=== PATIENT | female | born 1940 | race African-American/Black ===

== ENCOUNTER 2016-08-30 17:03 | Emergency (ER) | payer OTHER ==
[2016-08-30 17:36] VITALS: BP 137/76; PULSE 66; TEMP 98.6; BMI 27.8
[2016-08-30] MEDS ORDERED: DIPHTH,PERTUSS(ACELL),TET 0.5 ML DISP.SYRIN IM ONE (18:58)
[2016-08-30] MEDS ORDERED: BACITRACIN 30 GM TUBE TOPICAL OINTMENT TP ONE (18:58)
--- NOTE | 2016-08-30 19:04 | PDOC ---
History of Present Illness - General Chief Complaint: Injury Stated Complaint: FALL/INJURY Time Seen by Provider: 08/30/16 18:48 History Source: Patient Exam Limitations: No Limitations - History of Present Illness Initial Comments: 08/30/16 18:58 76 yr female trip and fall last night in parking lot injured left face. No LOC, pt injured right knee. no dizzyness or headache, pt has pain to the left orbit. no vision changes, tetanus unknown. Occurred: reports: yesterday Severity: reports: mild Pain Location: reports: face Method of Injury: Yes: fall Loss of Consciousness: no loss of consciousness Associated Symptoms (Fall): denies symptoms Past History - Past Medical History Allergies/Adverse Reactions: Allergies Allergy/AdvReac Type Severity Reaction Status Date / Time aspirin Allergy Verified 08/30/16 17:34 NSAIDS (Non-Steroidal Allergy Verified 08/30/16 17:34 Anti-Inflamma Penicillins Allergy Verified 08/30/16 17:34 Cancer: (CLL NO TREATMENT) HTN: Yes Hypercholesterolemia: Yes Thyroid Disease: Yes - Psycho/Social/Smoking Cessation Hx Suicidal Ideation: No Smoking History: Never smoked Hx Alcohol Use: No Drug/Substance Use Hx: No Trauma Specific PMHX - Complaint Specific PMHX Arthritis: No Review of Systems - Review of Systems Able to Perform ROS?: Yes Is the patient limited Palauan proficient: No Constitutional: No: Symptoms Reported HEENTM: No: Symptoms Reported Respiratory: No: Symptoms reported Cardiac (ROS): No: Symptoms Reported ABD/GI: No: Symptoms Reported : No: Symptoms Reported Musculoskeletal: Yes: Symptoms Reported Integumentary: No: Symptoms Reported *Physical Exam - Vital Signs Last Vital Signs Temp Pulse Resp BP Pulse Ox 98.6 F 66 16 137/76 97 08/30/16 17:29 08/30/16 17:29 08/30/16 17:29 08/30/16 17:29 08/30/16 17:29 - Physical Exam General Appearance: Yes: Nourished, Appropriately Dressed HEENT: positive: EOMI, LELAND, TMs Normal, Pharynx Normal, Other (left eye with periorbital edema, erythema , bruising, superficial abrasion to the cheek ) Neck: positive: Supple Respiratory/Chest: positive: Lungs Clear, Normal Breath Sounds Cardiovascular: positive: Regular Rhythm, Regular Rate Gastrointestinal/Abdominal: positive: Normal Bowel Sounds, Soft Musculoskeletal: positive: Normal Inspection. negative: Vertebral Tenderness Extremity: positive: Normal Capillary Refill, Normal Inspection, Normal Range of Motion, Tender, Swelling (right knee ). negative: Inflammation Integumentary: positive: Normal Color, Other (right knee with bruising noted , FROM ) Neurologic: positive: Fully Oriented, Alert, Normal Mood/Affect, Normal Response , Motor Strength 5/5 Procedures - Laceration/Wound Repair Left Cheek Wound Length: to 2.5 cm Wound Explored: clean Wound's Depth, Shape: superficial (abrasion ) Progress: 08/30/16 19:13 wound cleaned with saline, peroxide, wound is clean MEDICAL BILLER. bacitracin placed and covered with bandaid Medical Decision Making - Medical Decision Making 08/30/16 19:12 c: trip and fall no LOC <24 hrs ago injury to left orbit and right knee will update tetanus , Ct orbits, right knee xray wound cleaned, bacitracin placed to the left cheek abrasion 08/30/16 19:29 xray is negative, small effusion. Ct orbits are negative for fracture. pt to follow with the orthopedist 08/30/16 20:05 *DC/Admit/Observation/Transfer Diagnosis at time of Disposition: Contusion of face Qualifiers: Encounter type: initial encounter Qualified Code(s): S00.83XA - Contusion of other part of head, initial encounter Contusion, knee Qualifiers: Encounter type: initial encounter Laterality: right Qualified Code(s): S80.01XA - Contusion of right knee, initial encounter - Discharge Dispostion Disposition: HOME - Referrals Referrals: Handy Jang MD [Primary Care Provider] - - Patient Instructions Additional Instructions: apply ice every 2hrs while awake for 15-20 minutes to the right knee and to the left cheek for the next 2 days take tylenol or motrin for pain as needed follow with your doctor tomorrow for follow up return to ER for any worsening symptoms , headache, dizzyness or any other complaints
== END 2016-08-30 20:28 | disposition home or self-care (01) ==
LOC: JERFT 17:03 → JER 17:03 → JERFT 20:28
PROC: 3E0234Z Introduction of Serum, Toxoid and Vaccine into Muscle, Percutaneous Approach (ICD-10-PCS; principal; 2016-08-30)
DX: S00.83XA Contusion of other part of head, initial encounter (principal); S80.01XA Contusion of right knee, initial encounter; C91.10 Chronic lymphocytic leukemia of B-cell type not having achieved remission; I10 Essential (primary) hypertension; E78.00 Pure hypercholesterolemia, unspecified; E07.9 Disorder of thyroid, unspecified; W01.0XXA Fall on same level from slipping, tripping and stumbling without subsequent striking against object, initial encounter; Y93.01 Activity, walking, marching and hiking; Y92.481 Parking lot as the place of occurrence of the external cause
CPT/HCPCS: 70480-TC; 73562-TC-RT; 90471; 90715; 99281-25

== ENCOUNTER 2017-10-06 09:32 | Day surgery (SDC) | payer OTHER ==
[2017-10-05 10:00] VITALS: BMI 26.6
[2017-10-06] MEDS ORDERED: PROPOFOL 20 ML ONE ×2 (10:00)
[2017-10-06] MEDS ORDERED: LIDOCAINE HCL/PF 2% SDV 5ML VIAL ONE (10:00)
[2017-10-06 10:51] VITALS: TEMP 97.9
[2017-10-06 11:51] VITALS: BP 139/67; PULSE 58
--- NOTE | 2017-10-10 17:12 | PATH ---
Surgical Pathology Report Patient Name: BALTAZAR MORAES [facility]. Rec. #: [id number] /Age/Gender: 1940 (Age: 77) / F Account: [id number] Location: [facility]-ENDOSCOPY Taken: 10/06/2017 Received: 10/06/2017 Reported: 10/10/2017 Physicians: Gayathri Amezquita M.D. Specimen(s) Received A: BX HEPATIC FLEXURE POLYP B: BX CECAL POLYPS Clinical History Preoperative diagnosis: Weight loss, screening, change in bowel habits Postoperative diagnosis: Diverticulosis, polyp, lipoma Final Diagnosis A. COLON, HEPATIC FLEXURE, POLYP, BIOPSY: POLYPOID COLONIC MUCOSA WITH PROMINENT LYMPHOID AGGREGATE. B. CECUM, POLYP, BIOPSY: POLYPOID COLONIC MUCOSA WITH PROMINENT LYMPHOID AGGREGATE. SEE COMMENT. Comment: Immunohistochemical stains performed and interpreted at [facility] show the prominent lymphoid aggregates are comprised of an admixture of CD3+ T cells and CD20+ B cells, favoring a reactive process. Electronically Signed Pat Randle M.D. Gross Description A. Received in formalin, labeled "biopsy hepatic flexure polyp" are 2 chacon, irregular portions of soft tissue averaging 0.2 cm. in greatest dimension. The specimens are submitted in toto in one cassette. B. Received in formalin, labeled "biopsy cecal polyps" are 7 chacon, irregular portions of soft tissue ranging from 0.1-0.4 cm. in greatest dimension. The specimens are submitted in toto in one cassette. /10/06/2017 saudi10/06/2017
== END 2017-10-06 11:51 | disposition home or self-care (01) ==
LOC: JASU-ENDO 09:32
PROVIDERS: ATTEND Internal Medicine Gastroenterology
PROC: 0DBL8ZX Excision of Transverse Colon, Via Natural or Artificial Opening Endoscopic, Diagnostic (ICD-10-PCS; 2017-10-06)
PROC: 0DBH8ZX Excision of Cecum, Via Natural or Artificial Opening Endoscopic, Diagnostic (ICD-10-PCS; principal; 2017-10-06 10:30)
DX: Z12.11 Encounter for screening for malignant neoplasm of colon (principal); D12.0 Benign neoplasm of cecum; D12.3 Benign neoplasm of transverse colon; K57.30 Diverticulosis of large intestine without perforation or abscess without bleeding; D17.79 Benign lipomatous neoplasm of other sites
CPT/HCPCS: 88305-TC; 88341-TC; 88342-TC

== ENCOUNTER 2021-01-27 09:07 | Day surgery (SDC) | payer OTHER ==
[2021-01-27 10:10] LABS: BASO % 0.1 % (0-2.0); EOS % 0.7 % (0-4.5); HEMATOCRIT 26.3 % (32.4-45.2); HEMOGLOBIN 8.5 GM/dL (10.7-15.3); LYMPH % 94.9 % (8-40); MCH 27.7 pg (25.7-33.7); MCHC 32.2 g/dl (32.0-36.0); MEAN CELL VOLUME 86.1 fl (80-96); MEAN PLT VOLUME 9.1 fl (7.5-11.1); MONO % 1.7 % (3.8-10.2); NEUT % 2.6 % (42.8-82.8); PLATELET COUNT 180 K/MM3 (134-434); RBC 3.05 M/mm3 (3.60-5.2); RDW 15.7 % (11.6-15.6)
[2021-01-27 10:21] LABS: WHITE BLOOD COUNT 238.2 K/mm3 (4.0-10.0)
[2021-01-27 10:32] LABS: CALCIUM 8.6 mg/dL (8.5-10.1)
[2021-01-27 10:33] LABS: ALBUMIN 3.9 g/dl (3.4-5.0); BLOOD UREA NITROGEN 43.8 mg/dL (7-18)
[2021-01-27 10:35] LABS: URIC ACID 10.7 mg/dL (2.6-7.2)
[2021-01-27 10:36] LABS: CREATININE 1.6 mg/dL (0.55-1.3); PHOSPHOROUS 5.8 mg/dL (2.5-4.9)
[2021-01-27 10:37] LABS: BILIRUBIN,TOTAL 0.6 mg/dL (0.2-1)
[2021-01-27] MEDS ORDERED: SODIUM BICARBONATE 8.4% - 100 MEQ in DEXTROSE 5%-WATER - 1,000 ML IVPB SCH (11:00)
[2021-01-27 13:35] LABS: ANISOCYTOSIS 1+; MACROCYTOSIS 0; PLATELET ESTIMATE NORMAL
[2021-01-27 14:24] VITALS: TEMP 98.3
[2021-01-27] MEDS ORDERED: amLODIPine BESYLATE 5 MG TABLET (FP) PO ONE (14:45)
[2021-01-27 18:11] VITALS: BP 185/72; PULSE 76
== END 2021-01-27 15:35 | disposition home or self-care (01) ==
LOC: JONCCHEMO 09:07
PROVIDERS: ATTEND Internal Medicine Hematology & Oncology
PROC: 3E0337Z Introduction of Electrolytic and Water Balance Substance into Peripheral Vein, Percutaneous Approach (ICD-10-PCS; principal; 2021-01-27)
DX: E86.0 Dehydration (principal)
CPT/HCPCS: 36415; 80053; 83615; 84100; 84550; 85025; 96360; 96361

== ENCOUNTER 2021-01-28 08:12 | Day surgery (SDC) | payer OTHER ==
[2021-01-28] MEDS ORDERED: D5-1/2NS+20 MEQ KCL - 20 MEQ/1,000 ML INFUS.BAG IV ONE (09:30)
[2021-01-28] MEDS ORDERED: RASBURICASE 6 MG in SODIUM CHLORIDE 50 ML IVPB ONE (10:00)
[2021-01-28 10:05] LABS: BASO % 0.1 % (0-2.0); EOS % 0.6 % (0-4.5); HEMATOCRIT 25.4 % (32.4-45.2); HEMOGLOBIN 8.1 GM/dL (10.7-15.3); LYMPH % 94.5 % (8-40); MCH 27.7 pg (25.7-33.7); MCHC 31.9 g/dl (32.0-36.0); MEAN CELL VOLUME 86.7 fl (80-96); MEAN PLT VOLUME 9.5 fl (7.5-11.1); MONO % 1.3 % (3.8-10.2); NEUT % 3.5 % (42.8-82.8); PLATELET COUNT 163 K/MM3 (134-434); RBC 2.93 M/mm3 (3.60-5.2); RDW 16.1 % (11.6-15.6)
[2021-01-28 10:19] LABS: WHITE BLOOD COUNT 197.8 K/mm3 (4.0-10.0)
[2021-01-28 10:32] LABS: CALCIUM 8.6 mg/dL (8.5-10.1)
[2021-01-28 10:33] LABS: ALBUMIN 3.8 g/dl (3.4-5.0); BLOOD UREA NITROGEN 42.8 mg/dL (7-18)
[2021-01-28 10:35] LABS: URIC ACID 10.1 mg/dL (2.6-7.2)
[2021-01-28 10:36] LABS: CREATININE 1.7 mg/dL (0.55-1.3)
[2021-01-28 10:37] LABS: TOT PROT 6.9 g/dl (6.4-8.2)
[2021-01-28 10:42] LABS: BILIRUBIN,TOTAL 0.6 mg/dL (0.2-1)
[2021-01-28] MEDS ORDERED: POTASSIUM CHLORIDE TABS 20 MEQ TABLET.ER (FP) PO ONE (11:06)
[2021-01-28] MEDS ORDERED: SODIUM BICARBONATE IV ONE (11:07)
[2021-01-28] MEDS ORDERED: WATER IV ONE (11:07)
[2021-01-28] MEDS ORDERED: DEXTROSE IV ONE (11:07)
[2021-01-28 11:28] LABS: ANISOCYTOSIS 1+; MACROCYTOSIS 0; OVALOCYTE 1+; PLATELET ESTIMATE NORMAL; TEAR DROP CELLS 1+
[2021-01-28] MEDS ORDERED: SODIUM BICARBONATE 8.4% - 100 MEQ in DEXTROSE 5%-WATER - 1,000 ML IV ONE (11:30)
[2021-01-28] MEDS ORDERED: DEXTROSE 5%-WATER - 500 ML IV ONE (15:00)
[2021-01-28] MEDS ORDERED: FUROSEMIDE 20 MG TABLET (FP) PO ONE (15:45)
[2021-01-28 18:40] VITALS: TEMP 98.4
[2021-01-28 18:43] VITALS: BP 151/62; PULSE 72
== END 2021-01-28 16:15 | disposition home or self-care (01) ==
LOC: JONCNONCHE 08:12
PROVIDERS: ATTEND Internal Medicine Hematology & Oncology
PROC: 3E033GC Introduction of Other Therapeutic Substance into Peripheral Vein, Percutaneous Approach (ICD-10-PCS; principal; 2021-01-28)
PROC: 3E033GC Introduction of Other Therapeutic Substance into Peripheral Vein, Percutaneous Approach (ICD-10-PCS; 2021-01-28)
DX: C91.10 Chronic lymphocytic leukemia of B-cell type not having achieved remission (principal); Z76.89 Persons encountering health services in other specified circumstances
CPT/HCPCS: 36415; 80053; 83010; 83615; 84100; 84550; 85025; 96361; 96365; 96375

== ENCOUNTER 2021-02-01 16:29 | Inpatient (IN) | payer OTHER ==
[2021-02-01 17:38] LABS: BASO % 0.2 % (0-2.0); EOS % 0.5 % (0-4.5); HEMATOCRIT 17.1 % (32.4-45.2); LYMPH % 92.6 % (8-40); MCH 28.1 pg (25.7-33.7); MCHC 32.5 g/dl (32.0-36.0); MEAN CELL VOLUME 86.4 fl (80-96); MEAN PLT VOLUME 9.9 fl (7.5-11.1); MONO % 2.5 % (3.8-10.2); NEUT % 4.2 % (42.8-82.8); PLATELET COUNT 202 K/MM3 (134-434); RBC 1.98 M/mm3 (3.60-5.2); RDW 17.3 % (11.6-15.6)
[2021-02-01 17:41] LABS: HEMOGLOBIN 5.6 GM/dL (10.7-15.3); WHITE BLOOD COUNT 203.5 K/mm3 (4.0-10.0)
[2021-02-01 17:45] LABS: INR 1.05 (0.83-1.09); PROTHROMBIN TIME (PATIENT) 12.9 SEC (9.7-13.0)
[2021-02-01 17:47] LABS: ACTIVATED PTT 27.1 SECONDS (25.2-36.5)
[2021-02-01 17:53] LABS: EPI CELLS 2 /uL (0-25.1); HYALINE CASTS 1 /uL (0-3.1); URINE APPEARANCE CLOUDY; URINE BACTERIA 4956 /uL (0-1359); URINE BILIRUBIN NEGATIVE (NEGATIVE); URINE COLOR YELLOW; URINE GLUCOSE (UA) NEGATIVE (NEGATIVE); URINE KETONE NEGATIVE (NEGATIVE); URINE LEUK ESTERASE 3+ (NEGATIVE); URINE NITRITE NEGATIVE (NEGATIVE); URINE PROTEIN NEGATIVE (NEGATIVE); URINE RBC 8 /uL (0-23.9); URINE UROBILINOGEN 0.2 mg/dL (0.2-1.0); URINE WBC 498 /uL (0-25.8)
[2021-02-01 18:59] LABS: ALBUMIN 3.9 g/dl (3.4-5.0); BILIRUBIN,TOTAL 0.8 mg/dL (0.2-1); BLOOD UREA NITROGEN 35.5 mg/dL (7-18); CALCIUM 9.2 mg/dL (8.5-10.1); CREATININE 1.6 mg/dL (0.55-1.3)
[2021-02-01 19:09] LABS: ANISOCYTOSIS 2+; MACROCYTOSIS 0; PLATELET ESTIMATE NORMAL
[2021-02-01 19:36] LABS: URIC ACID 1.3 mg/dL (2.6-7.2)
[2021-02-01] MEDS ORDERED: CEFTRIAXONE 1,000 MG in DEXTROSE 5%-WATER - 50 ML IVPB ONE (19:48)
[2021-02-01] MEDS ORDERED: CEFTRIAXONE 1 GM/50 ML BAG ONE (20:05)
[2021-02-01] MEDS: ALLOPURINOL 300 MG TABLET (FP) PO SCH (21:22)
[2021-02-01] MEDS ORDERED: ACETAMINOPHEN 325 MG TABLET (FP) PO PRN (21:42)
[2021-02-01] MEDS ORDERED: LEVOTHYROXINE NA 112 MCG TABLET (FP) PO SCH (21:45)
[2021-02-01] MEDS ORDERED: SODIUM CHLORIDE 1,000 ML IV SCH (22:00)
[2021-02-01] MEDS ORDERED: DICYCLOMINE HCL 10 MG CAPSULE PO SCH (22:00)
[2021-02-01] MEDS: HYDROCHLOROTHIAZIDE 25 MG TABLET (FP) PO SCH (22:32)
[2021-02-01] MEDS: valACYclovir HCL 500 MG TABLET (FP) PO SCH (22:32)
[2021-02-01] MEDS: CARVEDILOL 6.25 MG TABLET (FP) PO SCH (22:32)
[2021-02-01] MEDS: ENTECAVIR 0.5 MG TABLET PO SCH ×2 (22:32→22:36)
[2021-02-01] MEDS: LOSARTAN POTASSIUM 50 MG TABLET PO SCH (22:32)
[2021-02-01] MEDS: ATORVASTATIN CA 10 MG TABLET (FP) PO SCH (22:32)
[2021-02-01] MEDS: amLODIPine BESYLATE 10 MG TABLET (FP) PO SCH (22:32)
[2021-02-01] MEDS ORDERED: DICYCLOMINE HCL 10 MG CAPSULE PO PRN (22:53)
[2021-02-01 23:14] VITALS: BMI 23.2
[2021-02-02] MEDS: LEVOTHYROXINE NA 112 MCG TABLET (FP) PO SCH (06:03)
[2021-02-02] MEDS ORDERED: DEXTROSE 5%-WATER - 50 ML IVPB ONE (08:38)
[2021-02-02] MEDS ORDERED: cefTRIAXone SODIUM 1 GM VIAL ONE (08:38)
[2021-02-02] MEDS: CARVEDILOL 6.25 MG TABLET (FP) PO SCH ×2 (09:32→21:21)
[2021-02-02] MEDS: CEFTRIAXONE 1 GM in DEXTROSE 5%-WATER - 50 ML IVPB SCH (09:32)
[2021-02-02] MEDS: ALLOPURINOL 300 MG TABLET (FP) PO SCH (09:32)
[2021-02-02] MEDS ORDERED: predniSONE 20 MG TABLET (UD) PO SCH (11:00)
[2021-02-02] MEDS ORDERED: PANTOPRAZOLE 40 MG TABLET PO SCH (11:00)
[2021-02-02 11:20] LABS: HEMATOCRIT 26.6 % (32.4-45.2); HEMOGLOBIN 8.9 GM/dL (10.7-15.3); MCH 28.9 pg (25.7-33.7); MCHC 33.3 g/dl (32.0-36.0); MEAN CELL VOLUME 86.7 fl (80-96); MEAN PLT VOLUME 9.3 fl (7.5-11.1); PLATELET COUNT 197 K/MM3 (134-434); RBC 3.07 M/mm3 (3.60-5.2); RDW 15.9 % (11.6-15.6)
[2021-02-02 11:27] LABS: WHITE BLOOD COUNT 181.1 K/mm3 (4.0-10.0)
[2021-02-02 11:36] LABS: ALBUMIN 3.8 g/dl (3.4-5.0); BLOOD UREA NITROGEN 30.8 mg/dL (7-18); CALCIUM 9.5 mg/dL (8.5-10.1); MAGNESIUM 2.5 mg/dL (1.8-2.4)
[2021-02-02 11:39] LABS: CREATININE 1.4 mg/dL (0.55-1.3); PHOSPHOROUS 3.4 mg/dL (2.5-4.9)
[2021-02-02 11:41] LABS: BILIRUBIN,TOTAL 0.5 mg/dL (0.2-1); TOT PROT 7.3 g/dl (6.4-8.2)
[2021-02-02] MEDS ORDERED: IRON SUCROSE INJECTION 200 MG in SODIUM CHLORIDE 90 ML IVPB ONE (14:08)
[2021-02-02] MEDS: valACYclovir HCL 500 MG TABLET (FP) PO SCH (21:20)
[2021-02-02] MEDS: HYDROCHLOROTHIAZIDE 25 MG TABLET (FP) PO SCH (21:20)
[2021-02-02] MEDS: LOSARTAN POTASSIUM 50 MG TABLET PO SCH (21:20)
[2021-02-02] MEDS: ATORVASTATIN CA 10 MG TABLET (FP) PO SCH (21:21)
[2021-02-02] MEDS: amLODIPine BESYLATE 10 MG TABLET (FP) PO SCH (21:21)
[2021-02-03] MEDS: LEVOTHYROXINE NA 112 MCG TABLET (FP) PO SCH (06:43)
[2021-02-03 07:38] LABS: BASO % 0.2 % (0-2.0); EOS % 0.1 % (0-4.5); HEMATOCRIT 25.7 % (32.4-45.2); HEMOGLOBIN 8.4 GM/dL (10.7-15.3); LYMPH % 88.7 % (8-40); MCHC 32.7 g/dl (32.0-36.0); MEAN CELL VOLUME 88.5 fl (80-96); MEAN PLT VOLUME 9.6 fl (7.5-11.1); MONO % 2.2 % (3.8-10.2); NEUT % 8.8 % (42.8-82.8); PLATELET COUNT 213 K/MM3 (134-434); RBC 2.91 M/mm3 (3.60-5.2); RDW 16.3 % (11.6-15.6)
[2021-02-03 07:40] LABS: WHITE BLOOD COUNT 188.1 K/mm3 (4.0-10.0)
[2021-02-03 08:23] LABS: ALBUMIN 3.7 g/dl (3.4-5.0); BLOOD UREA NITROGEN 26.8 mg/dL (7-18)
[2021-02-03 08:26] LABS: PHOSPHOROUS 4.1 mg/dL (2.5-4.9)
[2021-02-03 08:27] LABS: CREATININE 1.6 mg/dL (0.55-1.3); URIC ACID 2.3 mg/dL (2.6-7.2)
[2021-02-03 08:28] LABS: TOT PROT 6.9 g/dl (6.4-8.2)
[2021-02-03 08:29] LABS: BILIRUBIN,TOTAL 0.9 mg/dL (0.2-1)
[2021-02-03] MEDS ORDERED: DEXTROSE 5%-WATER - 50 ML IVPB ONE (08:49)
[2021-02-03] MEDS ORDERED: cefTRIAXone SODIUM 1 GM VIAL ONE (08:49)
[2021-02-03] MEDS: ENTECAVIR 0.5 MG TABLET PO SCH (09:41)
[2021-02-03] MEDS: LOPERAMIDE HCL 2 MG CAPSULE PO SCH (09:42)
[2021-02-03] MEDS: ALLOPURINOL 300 MG TABLET (FP) PO SCH (09:42)
[2021-02-03] MEDS: CARVEDILOL 6.25 MG TABLET (FP) PO SCH ×2 (09:42→21:18)
[2021-02-03] MEDS: CEFTRIAXONE 1 GM in DEXTROSE 5%-WATER - 50 ML IVPB SCH (09:44)
[2021-02-03] MEDS: ENOXAPARIN NA (PORCINE) 40 MG/0.4 ML DISP.SYRIN SQ SCH (09:44)
[2021-02-03 10:33] LABS: ANISOCYTOSIS 2+; MACROCYTOSIS 1+; PLATELET ESTIMATE NORMAL
[2021-02-03] MEDS ORDERED: LOPERAMIDE HCL 1 MG/5 ML UNIT DOSE CUP PO ONE (15:00)
[2021-02-03] MEDS ORDERED: IRON SUCROSE INJECTION 200 MG in SODIUM CHLORIDE 90 ML IVPB ONE (15:00)
[2021-02-03] MEDS ORDERED: LOPERAMIDE HCL 1 MG/7.5 ML LIQUID PO ONE (15:00)
[2021-02-03] MEDS: valACYclovir HCL 500 MG TABLET (FP) PO SCH (21:18)
[2021-02-03] MEDS: amLODIPine BESYLATE 10 MG TABLET (FP) PO SCH (21:18)
[2021-02-03] MEDS: LOSARTAN POTASSIUM 50 MG TABLET PO SCH (21:18)
[2021-02-03] MEDS: HYDROCHLOROTHIAZIDE 25 MG TABLET (FP) PO SCH (21:18)
[2021-02-03] MEDS: ATORVASTATIN CA 10 MG TABLET (FP) PO SCH (21:18)
[2021-02-04] MEDS: LEVOTHYROXINE NA 112 MCG TABLET (FP) PO SCH (06:43)
[2021-02-04 07:35] LABS: BASO % 0.2 % (0-2.0); EOS % 0.1 % (0-4.5); HEMATOCRIT 26.5 % (32.4-45.2); HEMOGLOBIN 8.8 GM/dL (10.7-15.3); LYMPH % 90.4 % (8-40); MCH 29.3 pg (25.7-33.7); MCHC 33.1 g/dl (32.0-36.0); MEAN CELL VOLUME 88.5 fl (80-96); MEAN PLT VOLUME 9.1 fl (7.5-11.1); MONO % 2.3 % (3.8-10.2); PLATELET COUNT 232 K/MM3 (134-434); RDW 16.7 % (11.6-15.6)
[2021-02-04 07:57] LABS: WHITE BLOOD COUNT 190.2 K/mm3 (4.0-10.0)
[2021-02-04 08:20] LABS: BLOOD UREA NITROGEN 26.4 mg/dL (7-18)
[2021-02-04 08:23] LABS: CALCIUM 9.1 mg/dL (8.5-10.1); URIC ACID 2.7 mg/dL (2.6-7.2)
[2021-02-04 08:24] LABS: ALBUMIN 3.7 g/dl (3.4-5.0); CREATININE 1.7 mg/dL (0.55-1.3); PHOSPHOROUS 3.3 mg/dL (2.5-4.9)
[2021-02-04 08:27] LABS: BILIRUBIN,TOTAL 0.5 mg/dL (0.2-1)
[2021-02-04] MEDS ORDERED: IRON SUCROSE INJECTION 100 MG in SODIUM CHLORIDE 95 ML IVPB ONE (09:30)
[2021-02-04] MEDS ORDERED: cefTRIAXone SODIUM 1 GM VIAL ONE (09:59)
[2021-02-04] MEDS ORDERED: DEXTROSE 5%-WATER - 50 ML IVPB ONE (09:59)
[2021-02-04] MEDS: CARVEDILOL 6.25 MG TABLET (FP) PO SCH (10:08)
[2021-02-04] MEDS: LOPERAMIDE HCL 2 MG CAPSULE PO SCH (10:08)
[2021-02-04] MEDS: ALLOPURINOL 300 MG TABLET (FP) PO SCH (10:08)
[2021-02-04] MEDS: ENOXAPARIN NA (PORCINE) 40 MG/0.4 ML DISP.SYRIN SQ SCH (10:08)
[2021-02-04] MEDS: CEFTRIAXONE 1 GM in DEXTROSE 5%-WATER - 50 ML IVPB SCH (11:08)
[2021-02-04 12:04] LABS: ANISOCYTOSIS 1+; MACROCYTOSIS 0; OVALOCYTE 1+; PLATELET ESTIMATE NORMAL; TARGET CELLS 1+
[2021-02-04 14:31] VITALS: BP 114/58; PULSE 64; TEMP 98.4
== END 2021-02-04 16:36 | disposition home or self-care (01) | DRG 812 ==
LOC: JER 16:29 → JERBED 18:54 → J8W 21:11 → J7W 02-02 10:49
PROVIDERS: ADMIT Internal Medicine; ATTEND Internal Medicine
PROC: 30233N1 Transfusion of Nonautologous Red Blood Cells into Peripheral Vein, Percutaneous Approach (ICD-10-PCS; principal; 2021-02-01)
DX: D50.9 Iron deficiency anemia, unspecified (principal); C91.10 Chronic lymphocytic leukemia of B-cell type not having achieved remission; N39.0 Urinary tract infection, site not specified; E78.5 Hyperlipidemia, unspecified; E03.9 Hypothyroidism, unspecified; I12.9 Hypertensive chronic kidney disease with stage 1 through stage 4 chronic kidney disease, or unspecified chronic kidney disease; N18.9 Chronic kidney disease, unspecified; K57.90 Diverticulosis of intestine, part unspecified, without perforation or abscess without bleeding; K58.9 Irritable bowel syndrome, unspecified; K63.5 Polyp of colon
CPT/HCPCS: 36415; 36430; 36511; 80053; 81003; 82272; 82728; 82955; 83010; 83540; 83550; 83615; 83735; 84100; 84550; 85025; 85027; 85045; 85610; 85730; 86769; 86880; 86900; 86922; 87086; 87186; 93005; 93010; 99285-25; C9803; J1756; P9038; P9058; U0003; U0005

== ENCOUNTER 2021-02-18 07:16 | Day surgery (SDC) | payer OTHER ==
[2021-02-18 12:21] LABS: BASO % 0.2 % (0-2.0); EOS % 0.7 % (0-4.5); HEMATOCRIT 32.1 % (32.4-45.2); HEMOGLOBIN 10.1 GM/dL (10.7-15.3); LYMPH % 93.5 % (8-40); MCH 28.7 pg (25.7-33.7); MCHC 31.5 g/dl (32.0-36.0); MEAN PLT VOLUME 9.2 fl (7.5-11.1); MONO % 0.7 % (3.8-10.2); NEUT % 4.9 % (42.8-82.8); PLATELET COUNT 206 10^3/uL (134-434); RBC 3.52 M/mm3 (3.60-5.2); RDW 17.9 % (11.6-15.6)
[2021-02-18 12:26] LABS: WHITE BLOOD COUNT 161.8 K/mm3 (4.0-10.0)
[2021-02-18 12:45] LABS: CALCIUM 8.8 mg/dL (8.5-10.1)
[2021-02-18 12:47] LABS: BLOOD UREA NITROGEN 30.1 mg/dL (7-18)
[2021-02-18 12:48] LABS: BILIRUBIN,DIRECT 0.1 mg/dL (0.0-0.2); URIC ACID 6.1 mg/dL (2.6-7.2)
[2021-02-18 12:50] LABS: CREATININE 1.6 mg/dL (0.55-1.3)
[2021-02-18 12:51] LABS: BILIRUBIN,TOTAL 0.7 mg/dL (0.2-1); TOT PROT 7.1 g/dl (6.4-8.2)
[2021-02-18] MEDS ORDERED: ONDANSETRON INJECTION 8 MG in SODIUM CHLORIDE 50 ML IVPB ONE (13:00)
[2021-02-18] MEDS ORDERED: SODIUM BICARBONATE 8.4% - 75 MEQ in SODIUM CHLORIDE 0.45% 1,000 ML IV ONE (13:00)
[2021-02-18 13:16] LABS: ERYTHROCYTE SEDIMENTATION RATE 18 mm/hr (0-30)
[2021-02-18 14:33] LABS: ANISOCYTOSIS 1+; MACROCYTOSIS 0; PLATELET ESTIMATE NORMAL
[2021-02-18] MEDS ORDERED: SODIUM BICARBONATE IV ONE (16:00)
[2021-02-18] MEDS ORDERED: SODIUM CHLORIDE 0.45% IV ONE (16:00)
[2021-02-18 19:22] VITALS: TEMP 98.3
[2021-02-18 19:33] VITALS: BP 166/79; PULSE 67
== END 2021-02-18 18:40 | disposition home or self-care (01) ==
LOC: JONCNONCHE 07:16
PROVIDERS: ATTEND Internal Medicine Hematology & Oncology
PROC: 3E033GC Introduction of Other Therapeutic Substance into Peripheral Vein, Percutaneous Approach (ICD-10-PCS; principal; 2021-02-18)
PROC: 3E033GC Introduction of Other Therapeutic Substance into Peripheral Vein, Percutaneous Approach (ICD-10-PCS; 2021-02-18)
DX: C91.10 Chronic lymphocytic leukemia of B-cell type not having achieved remission (principal); Z76.89 Persons encountering health services in other specified circumstances
CPT/HCPCS: 36415; 80048; 80076; 83615; 84550; 85025; 85651; 96361; 96365; J2405

== ENCOUNTER 2021-02-22 07:33 | Day surgery (SDC) | payer OTHER ==
[2021-02-22 11:40] LABS: BASO % 0.1 % (0-2.0); EOS % 1.3 % (0-4.5); HEMATOCRIT 34.1 % (32.4-45.2); HEMOGLOBIN 10.2 GM/dL (10.7-15.3); MCH 27.9 pg (25.7-33.7); MCHC 29.8 g/dl (32.0-36.0); MEAN CELL VOLUME 93.6 fl (80-96); MEAN PLT VOLUME 9.3 fl (7.5-11.1); MONO % 1.5 % (3.8-10.2); NEUT % 5.1 % (42.8-82.8); PLATELET COUNT 185 10^3/uL (134-434); RBC 3.65 M/mm3 (3.60-5.2); RDW 17.5 % (11.6-15.6)
[2021-02-22 11:45] LABS: WHITE BLOOD COUNT 138.6 K/mm3 (4.0-10.0)
[2021-02-22] MEDS ORDERED: MAGNESIUM 1GM/D5W - 1 GM/100 ML IVPB IVPB ONE (11:45)
[2021-02-22] MEDS ORDERED: D5-NS + 20 MEQ KCL - 20 MEQ/1,000 ML INFUS.BAG IV ONE (11:45)
[2021-02-22 12:01] LABS: ALBUMIN 3.9 g/dl (3.4-5.0); BLOOD UREA NITROGEN 29.9 mg/dL (7-18); CALCIUM 8.6 mg/dL (8.5-10.1); MAGNESIUM 2.4 mg/dL (1.8-2.4)
[2021-02-22 12:03] LABS: PHOSPHOROUS 3.6 mg/dL (2.5-4.9); URIC ACID 6.7 mg/dL (2.6-7.2)
[2021-02-22 12:04] LABS: BILIRUBIN,DIRECT 0.2 mg/dL (0.0-0.2); CREATININE 1.5 mg/dL (0.55-1.3)
[2021-02-22 12:06] LABS: BILIRUBIN,TOTAL 0.6 mg/dL (0.2-1); TOT PROT 6.9 g/dl (6.4-8.2)
[2021-02-22 12:52] LABS: ANISOCYTOSIS 1+; MACROCYTOSIS 0; OVALOCYTE 1+; PLATELET ESTIMATE NORMAL
[2021-02-22] MEDS ORDERED: FUROSEMIDE 20 MG TABLET (FP) PO ONE (13:00)
[2021-02-22] MEDS ORDERED: D5-NS + 40 MEQ KCL - 20 MEQ/500 ML INFUS.BAG IV ONE (13:00)
[2021-02-22 17:59] VITALS: TEMP 98.2
[2021-02-22 18:01] VITALS: BP 163/57; PULSE 62
== END 2021-02-22 17:00 | disposition home or self-care (01) ==
LOC: JONCCHEMO 07:33
PROVIDERS: ATTEND Internal Medicine Hematology & Oncology
PROC: 3E0337Z Introduction of Electrolytic and Water Balance Substance into Peripheral Vein, Percutaneous Approach (ICD-10-PCS; principal; 2021-02-22)
PROC: 3E033GC Introduction of Other Therapeutic Substance into Peripheral Vein, Percutaneous Approach (ICD-10-PCS; 2021-02-22)
DX: C91.10 Chronic lymphocytic leukemia of B-cell type not having achieved remission (principal); Z76.89 Persons encountering health services in other specified circumstances
CPT/HCPCS: 36415; 80048; 80076; 83615; 83735; 84100; 84550; 85025; 96365; 96523

== ENCOUNTER 2021-02-23 06:42 | Day surgery (SDC) | payer OTHER ==
[2021-02-23] MEDS ORDERED: FUROSEMIDE 20 MG TABLET (FP) PO ONE (09:00)
[2021-02-23] MEDS ORDERED: MAGNESIUM 1GM/D5W - 1 GM/100 ML IVPB IVPB ONE (09:00)
[2021-02-23] MEDS ORDERED: D5-1/2NS+20 MEQ KCL - 30 MEQ/1,500 ML INFUS.BAG IV ONE (09:00)
[2021-02-23 18:30] VITALS: PULSE 61; TEMP 98.1
[2021-02-23 18:35] VITALS: BP 143/64
== END 2021-02-23 13:40 | disposition home or self-care (01) ==
LOC: JONCNONCHE 06:42
PROVIDERS: ATTEND Internal Medicine Hematology & Oncology
PROC: 3E033GC Introduction of Other Therapeutic Substance into Peripheral Vein, Percutaneous Approach (ICD-10-PCS; principal; 2021-02-23)
PROC: 3E0337Z Introduction of Electrolytic and Water Balance Substance into Peripheral Vein, Percutaneous Approach (ICD-10-PCS; 2021-02-23)
DX: C91.10 Chronic lymphocytic leukemia of B-cell type not having achieved remission (principal); Z76.89 Persons encountering health services in other specified circumstances
CPT/HCPCS: 96361; 96365

== ENCOUNTER 2021-02-26 07:28 | Day surgery (SDC) | payer OTHER ==
[2021-02-26] MEDS ORDERED: MAGNESIUM 1GM/D5W - 1 GM/100 ML IVPB IVPB ONE (10:00)
[2021-02-26] MEDS ORDERED: D5-1/2NS+20 MEQ KCL - 30 MEQ/1,500 ML INFUS.BAG IV ONE (10:00)
[2021-02-26] MEDS ORDERED: FUROSEMIDE 20 MG TABLET (FP) PO ONE (10:00)
[2021-02-26 10:57] LABS: MAGNESIUM 2.2 mg/dL (1.8-2.4)
[2021-02-26 10:58] LABS: ALBUMIN 3.9 g/dl (3.4-5.0); BLOOD UREA NITROGEN 26.6 mg/dL (7-18)
[2021-02-26 11:00] LABS: BILIRUBIN,DIRECT 0.2 mg/dL (0.0-0.2); CREATININE 1.4 mg/dL (0.55-1.3)
[2021-02-26 11:01] LABS: PHOSPHOROUS 3.3 mg/dL (2.5-4.9); TOT PROT 6.7 g/dl (6.4-8.2)
[2021-02-26 11:02] LABS: BILIRUBIN,TOTAL 0.6 mg/dL (0.2-1)
[2021-02-26 12:01] LABS: BASO % 0.4 % (0-2.0); EOS % 2.2 % (0-4.5); HEMATOCRIT 32.2 % (32.4-45.2); HEMOGLOBIN 9.8 GM/dL (10.7-15.3); LYMPH % 88.2 % (8-40); MCH 28.6 pg (25.7-33.7); MCHC 30.5 g/dl (32.0-36.0); MEAN CELL VOLUME 93.9 fl (80-96); MEAN PLT VOLUME 9.9 fl (7.5-11.1); MONO % 2.6 % (3.8-10.2); NEUT % 6.6 % (42.8-82.8); PLATELET COUNT 173 10^3/uL (134-434); RBC 3.43 M/mm3 (3.60-5.2); RDW 17.2 % (11.6-15.6)
[2021-02-26 13:26] LABS: ANISOCYTOSIS 1+; MACROCYTOSIS 0; PLATELET ESTIMATE NORMAL
[2021-02-26 13:59] LABS: WHITE BLOOD COUNT 118.3 K/mm3 (4.0-10.0)
[2021-02-26 17:34] VITALS: TEMP 98.7
[2021-02-26 17:37] VITALS: BP 167/68; PULSE 67
== END 2021-02-26 14:25 | disposition home or self-care (01) ==
LOC: JONCNONCHE 07:28
PROVIDERS: ATTEND Internal Medicine Hematology & Oncology
PROC: 3E033GC Introduction of Other Therapeutic Substance into Peripheral Vein, Percutaneous Approach (ICD-10-PCS; principal; 2021-02-26)
PROC: 3E033GC Introduction of Other Therapeutic Substance into Peripheral Vein, Percutaneous Approach (ICD-10-PCS; 2021-02-26)
DX: C91.10 Chronic lymphocytic leukemia of B-cell type not having achieved remission (principal); Z76.89 Persons encountering health services in other specified circumstances
CPT/HCPCS: 36415; 80048; 80076; 83615; 83735; 84100; 84550; 85025; 96361; 96365

== ENCOUNTER 2021-03-02 07:08 | Day surgery (SDC) | payer OTHER ==
[2021-03-02 11:25] LABS: EOS % 1.6 % (0-4.5); HEMATOCRIT 33.4 % (32.4-45.2); HEMOGLOBIN 10.2 GM/dL (10.7-15.3); LYMPH % 90.8 % (8-40); MCH 28.5 pg (25.7-33.7); MCHC 30.6 g/dl (32.0-36.0); MEAN CELL VOLUME 93.4 fl (80-96); MEAN PLT VOLUME 9.6 fl (7.5-11.1); MONO % 1.2 % (3.8-10.2); NEUT % 6.4 % (42.8-82.8); PLATELET COUNT 208 10^3/uL (134-434); RBC 3.58 M/mm3 (3.60-5.2); RDW 17.3 % (11.6-15.6)
[2021-03-02] MEDS ORDERED: FUROSEMIDE 20 MG TABLET (FP) PO ONE (11:30)
[2021-03-02] MEDS ORDERED: MAGNESIUM 1GM/D5W - 1 GM/100 ML IVPB IVPB ONE (11:30)
[2021-03-02] MEDS ORDERED: D5-1/2NS+20 MEQ KCL - 30 MEQ/1,500 ML INFUS.BAG IV ONE (11:30)
[2021-03-02 11:37] LABS: WHITE BLOOD COUNT 123.2 K/mm3 (4.0-10.0)
[2021-03-02 11:50] LABS: BLOOD UREA NITROGEN 26.6 mg/dL (7-18); CALCIUM 8.8 mg/dL (8.5-10.1); MAGNESIUM 2.1 mg/dL (1.8-2.4)
[2021-03-02 11:54] LABS: CREATININE 1.5 mg/dL (0.55-1.3)
[2021-03-02 11:55] LABS: BILIRUBIN,DIRECT 0.2 mg/dL (0.0-0.2); BILIRUBIN,TOTAL 0.7 mg/dL (0.2-1)
[2021-03-02 11:57] LABS: TOT PROT 7.1 g/dl (6.4-8.2)
[2021-03-02 12:05] LABS: URIC ACID 6.5 mg/dL (2.6-7.2)
[2021-03-02 12:06] LABS: ANISOCYTOSIS 0; HELMET CELLS 0; HOWELL-JOLLY BODIES 0; MACROCYTOSIS 0; OVALOCYTE 0; PLATELET ESTIMATE NORMAL; ROULEAU 0; SICKELED CELLS 0; TARGET CELLS 0; TEAR DROP CELLS 0; TOXIC GRANULATION 0
[2021-03-02 12:06] LABS: PHOSPHOROUS 3.4 mg/dL (2.5-4.9)
[2021-03-02 16:55] VITALS: BP 148/72; TEMP 97.8
[2021-03-02 16:56] VITALS: PULSE 64
== END 2021-03-02 16:00 | disposition home or self-care (01) ==
LOC: JONCNONCHE 07:08
PROVIDERS: ATTEND Internal Medicine Hematology & Oncology
PROC: 3E033GC Introduction of Other Therapeutic Substance into Peripheral Vein, Percutaneous Approach (ICD-10-PCS; principal; 2021-03-02)
PROC: 3E033GC Introduction of Other Therapeutic Substance into Peripheral Vein, Percutaneous Approach (ICD-10-PCS; 2021-03-02)
DX: C91.10 Chronic lymphocytic leukemia of B-cell type not having achieved remission (principal); Z76.89 Persons encountering health services in other specified circumstances
CPT/HCPCS: 36415; 80048; 80076; 82150; 83615; 83690; 83735; 84100; 84550; 85025; 96365; 96368

== ENCOUNTER 2021-03-08 06:02 | Day surgery (SDC) | payer OTHER ==
[2021-03-08 11:38] LABS: BASO % 0.3 % (0-2.0); EOS % 0.9 % (0-4.5); HEMATOCRIT 32.4 % (32.4-45.2); HEMOGLOBIN 9.8 GM/dL (10.7-15.3); LYMPH % 90.1 % (8-40); MCH 28.6 pg (25.7-33.7); MCHC 30.2 g/dl (32.0-36.0); MEAN CELL VOLUME 94.6 fl (80-96); MEAN PLT VOLUME 9.7 fl (7.5-11.1); MONO % 1.8 % (3.8-10.2); NEUT % 6.9 % (42.8-82.8); PLATELET COUNT 228 10^3/uL (134-434); RBC 3.43 M/mm3 (3.60-5.2); RDW 17.2 % (11.6-15.6)
[2021-03-08 11:53] LABS: CALCIUM 8.9 mg/dL (8.5-10.1); MAGNESIUM 2.1 mg/dL (1.8-2.4)
[2021-03-08 11:54] LABS: ALBUMIN 3.8 g/dl (3.4-5.0); BLOOD UREA NITROGEN 34.9 mg/dL (7-18)
[2021-03-08 11:56] LABS: CREATININE 1.7 mg/dL (0.55-1.3)
[2021-03-08 11:57] LABS: BILIRUBIN,DIRECT 0.1 mg/dL (0.0-0.2)
[2021-03-08 11:58] LABS: TOT PROT 6.7 g/dl (6.4-8.2)
[2021-03-08 11:59] LABS: BILIRUBIN,TOTAL 0.4 mg/dL (0.2-1)
[2021-03-08] MEDS ORDERED: MAGNESIUM 1GM/D5W - 1 GM/100 ML IVPB IVPB ONE (12:00)
[2021-03-08] MEDS ORDERED: D5-1/2NS+20 MEQ KCL - 20 MEQ/1,000 ML INFUS.BAG IV ONE (12:00)
[2021-03-08] MEDS ORDERED: FUROSEMIDE 20 MG TABLET (FP) PO ONE (12:00)
[2021-03-08 12:01] LABS: URIC ACID 5.9 mg/dL (2.6-7.2)
[2021-03-08 12:51] LABS: ANISOCYTOSIS 1+; MACROCYTOSIS 0; PLATELET ESTIMATE NORMAL; TEAR DROP CELLS 1+
[2021-03-08 14:36] LABS: WHITE BLOOD COUNT 108.6 K/mm3 (4.0-10.0)
[2021-03-08 16:46] VITALS: TEMP 97.9
[2021-03-08 16:47] VITALS: BP 136/76; PULSE 84
== END 2021-03-08 16:48 | disposition home or self-care (01) ==
LOC: JONCCHEMO 06:02
PROVIDERS: ATTEND Internal Medicine Hematology & Oncology
PROC: 3E033GC Introduction of Other Therapeutic Substance into Peripheral Vein, Percutaneous Approach (ICD-10-PCS; principal; 2021-03-08)
PROC: 3E0337Z Introduction of Electrolytic and Water Balance Substance into Peripheral Vein, Percutaneous Approach (ICD-10-PCS; 2021-03-08)
DX: C91.10 Chronic lymphocytic leukemia of B-cell type not having achieved remission (principal); I10 Essential (primary) hypertension; D57.3 Sickle-cell trait
CPT/HCPCS: 36415; 80048; 80076; 83615; 83735; 84550; 85025; 96361; 96365

== ENCOUNTER 2021-03-15 05:36 | Day surgery (SDC) | payer OTHER ==
[2021-03-15] MEDS ORDERED: FUROSEMIDE 20 MG TABLET (FP) PO ONE (09:00)
[2021-03-15] MEDS ORDERED: D5-1/2NS+20 MEQ KCL - 30 MEQ/1,500 ML INFUS.BAG IV ONE (09:00)
[2021-03-15 12:14] LABS: BASO % 0.1 % (0-2.0); EOS % 0.7 % (0-4.5); HEMATOCRIT 33.1 % (32.4-45.2); HEMOGLOBIN 10.2 GM/dL (10.7-15.3); LYMPH % 89.7 % (8-40); MCH 28.7 pg (25.7-33.7); MCHC 30.7 g/dl (32.0-36.0); MEAN CELL VOLUME 93.6 fl (80-96); MEAN PLT VOLUME 9.4 fl (7.5-11.1); MONO % 1.8 % (3.8-10.2); NEUT % 7.7 % (42.8-82.8); PLATELET COUNT 220 10^3/uL (134-434); RBC 3.54 M/mm3 (3.60-5.2); RDW 16.6 % (11.6-15.6)
[2021-03-15] MEDS: MAGNESIUM 1GM/D5W - 1 GM/100 ML IVPB IVPB ONE ×2 (12:28→17:05)
[2021-03-15 12:38] LABS: MAGNESIUM 2.8 mg/dL (1.8-2.4)
[2021-03-15 12:39] LABS: CALCIUM 8.9 mg/dL (8.5-10.1)
[2021-03-15 12:40] LABS: BLOOD UREA NITROGEN 37.6 mg/dL (7-18)
[2021-03-15 12:41] LABS: URIC ACID 5.8 mg/dL (2.6-7.2)
[2021-03-15 12:42] LABS: BILIRUBIN,DIRECT 0.2 mg/dL (0.0-0.2); CREATININE 1.8 mg/dL (0.55-1.3)
[2021-03-15 12:43] LABS: PHOSPHOROUS 4.2 mg/dL (2.5-4.9); TOT PROT 7.2 g/dl (6.4-8.2)
[2021-03-15 12:44] LABS: BILIRUBIN,TOTAL 0.5 mg/dL (0.2-1)
[2021-03-15 12:54] LABS: WHITE BLOOD COUNT 118.8 K/mm3 (4.0-10.0)
[2021-03-15 14:27] LABS: ANISOCYTOSIS 0; HELMET CELLS 0; HOWELL-JOLLY BODIES 0; MACROCYTOSIS 0; OVALOCYTE 0; PLATELET ESTIMATE NORMAL; ROULEAU 0; SICKELED CELLS 0; TARGET CELLS 0; TEAR DROP CELLS 0; TOXIC GRANULATION 0
[2021-03-15 17:19] VITALS: TEMP 98
[2021-03-15 17:20] VITALS: BP 156/66; PULSE 55
[2021-03-17 06:06] LABS: BETA-2-MICROGLOBULIN 3.4 mg/L (0.6-2.4)
== END 2021-03-15 17:21 | disposition home or self-care (01) ==
LOC: JONCNONCHE 05:36
PROVIDERS: ATTEND Internal Medicine Hematology & Oncology
PROC: 3E0337Z Introduction of Electrolytic and Water Balance Substance into Peripheral Vein, Percutaneous Approach (ICD-10-PCS; principal; 2021-03-15)
DX: C91.10 Chronic lymphocytic leukemia of B-cell type not having achieved remission (principal); Z76.89 Persons encountering health services in other specified circumstances
CPT/HCPCS: 36415; 80048; 80076; 82232; 82784; 83615; 83735; 84100; 84550; 85025; 87517; 96360; 96361

== ENCOUNTER 2021-03-19 14:22 | Emergency (ER) | payer OTHER ==
[2021-03-19 14:40] VITALS: TEMP 98.1; BMI 24.2
[2021-03-19] MEDS ORDERED: SODIUM CHLORIDE 1,000 ML IV STA (16:51)
[2021-03-19 18:09] LABS: BASO % 0.2 % (0-2.0); EOS % 0.6 % (0-4.5); HEMATOCRIT 36.6 % (32.4-45.2); HEMOGLOBIN 11.3 GM/dL (10.7-15.3); LYMPH % 88.4 % (8-40); MCH 29.3 pg (25.7-33.7); MCHC 30.9 g/dl (32.0-36.0); MEAN CELL VOLUME 94.8 fl (80-96); MEAN PLT VOLUME 10.1 fl (7.5-11.1); MONO % 2.2 % (3.8-10.2); NEUT % 8.6 % (42.8-82.8); PLATELET COUNT 209 10^3/uL (134-434); RBC 3.86 M/mm3 (3.60-5.2); RDW 16.7 % (11.6-15.6)
[2021-03-19 18:26] LABS: CHLORIDE 112 mmol/L (98-107); SODIUM 143 mmol/L (136-145)
[2021-03-19 18:28] LABS: ALBUMIN 4.2 g/dl (3.4-5.0); ANION GAP 5 MMOL/L (8-16); BLOOD UREA NITROGEN 23.6 mg/dL (7-18); CALCIUM 9.3 mg/dL (8.5-10.1); CO2 26 mmol/L (21-32); MAGNESIUM 2.2 mg/dL (1.8-2.4)
[2021-03-19 18:29] LABS: GLUCOSE,RANDOM 86 mg/dL (74-106)
[2021-03-19 18:31] LABS: CREATININE 1.6 mg/dL (0.55-1.3); SGOT/AST 22 U/L (15-37); SGPT/ALT 30 U/L (13-61)
[2021-03-19 18:33] LABS: BILIRUBIN,TOTAL 0.6 mg/dL (0.2-1); LDH 282 U/L (84-246); TOT PROT 7.5 g/dl (6.4-8.2)
[2021-03-19 18:34] LABS: ALK PHOS 100 U/L (45-117)
[2021-03-19 20:02] LABS: ANISOCYTOSIS 1+
[2021-03-19 20:03] LABS: PLATELET ESTIMATE ADEQUATE
[2021-03-19 20:04] LABS: URINE APPEARANCE CLEAR; URINE BILIRUBIN NEGATIVE (NEGATIVE); URINE COLOR YELLOW; URINE GLUCOSE (UA) NEGATIVE (NEGATIVE); URINE KETONE NEGATIVE (NEGATIVE); URINE LEUK ESTERASE NEGATIVE (NEGATIVE); URINE NITRITE NEGATIVE (NEGATIVE); URINE PROTEIN NEGATIVE (NEGATIVE); URINE UROBILINOGEN 0.2 mg/dL (0.2-1.0)
[2021-03-19 22:02] VITALS: BP 187/72; PULSE 69
== END 2021-03-19 22:08 | disposition home or self-care (01) ==
LOC: JER 14:22
PROC: 3E0337Z Introduction of Electrolytic and Water Balance Substance into Peripheral Vein, Percutaneous Approach (ICD-10-PCS; principal; 2021-03-19)
DX: R42 Dizziness and giddiness (principal)
CPT/HCPCS: 36415; 70450-TC; 71045-TC-FY; 80053; 81003; 83010; 83615; 83735; 84484; 85025; 87086; 93005; 93010; 99285-25; C9803; U0003; U0005

== ENCOUNTER 2021-03-22 06:51 | Day surgery (SDC) | payer OTHER ==
[2021-03-22 08:54] LABS: BASO % 0.2 % (0-2.0); EOS % 0.9 % (0-4.5); HEMATOCRIT 34.1 % (32.4-45.2); HEMOGLOBIN 10.6 GM/dL (10.7-15.3); LYMPH % 90.3 % (8-40); MCH 29.5 pg (25.7-33.7); MCHC 31.1 g/dl (32.0-36.0); MEAN CELL VOLUME 94.7 fl (80-96); MEAN PLT VOLUME 9.7 fl (7.5-11.1); MONO % 1.5 % (3.8-10.2); NEUT % 7.1 % (42.8-82.8); PLATELET COUNT 199 10^3/uL (134-434); RDW 16.6 % (11.6-15.6)
[2021-03-22 09:00] LABS: WHITE BLOOD COUNT 105.9 K/mm3 (4.0-10.0)
[2021-03-22 09:13] LABS: CALCIUM 8.9 mg/dL (8.5-10.1)
[2021-03-22 09:14] LABS: ALBUMIN 3.9 g/dl (3.4-5.0)
[2021-03-22 09:15] LABS: URIC ACID 5.1 mg/dL (2.6-7.2)
[2021-03-22 09:16] LABS: BILIRUBIN,DIRECT 0.2 mg/dL (0.0-0.2); CREATININE 1.6 mg/dL (0.55-1.3)
[2021-03-22 09:17] LABS: PHOSPHOROUS 3.7 mg/dL (2.5-4.9); TOT PROT 6.8 g/dl (6.4-8.2)
[2021-03-22 09:19] LABS: BILIRUBIN,TOTAL 0.5 mg/dL (0.2-1)
[2021-03-22] MEDS ORDERED: SODIUM CHLORIDE 250 ML IV ONE (09:30)
[2021-03-22] MEDS ORDERED: ACETAMINOPHEN 325 MG TABLET (FP) PO ONE (10:00)
[2021-03-22] MEDS ORDERED: ONDANSETRON INJECTION 8 MG, DIPHENHYDRAMINE 25 MG in SODIUM CHLORIDE 100 ML IVPB ONE (10:00)
[2021-03-22] MEDS ORDERED: RITUXIMAB-ABBS 500 MG, RITUXIMAB-ABBS 175 MG in SODIUM CHLORIDE 607.5 ML IVPB ONE (10:30)
[2021-03-22 11:29] LABS: ANISOCYTOSIS 1+; MACROCYTOSIS 0; PLATELET ESTIMATE NORMAL
[2021-03-22 17:59] VITALS: BP 173/66; PULSE 74; TEMP 97.9
== END 2021-03-22 18:00 | disposition home or self-care (01) ==
LOC: JONCCHEMO 06:51
PROVIDERS: ATTEND Internal Medicine Hematology & Oncology
DX: Z51.11 Encounter for antineoplastic chemotherapy (principal); C91.10 Chronic lymphocytic leukemia of B-cell type not having achieved remission
CPT/HCPCS: 36415; 80048; 80076; 83615; 83735; 84100; 84550; 85025; 96367; 96413; 96415; Q5115

== ENCOUNTER 2021-03-23 06:45 | Day surgery (SDC) | payer OTHER ==
[2021-03-23 09:37] LABS: BASO % 0.5 % (0-2.0); EOS % 1.3 % (0-4.5); HEMATOCRIT 31.6 % (32.4-45.2); HEMOGLOBIN 10.1 GM/dL (10.7-15.3); LYMPH % 84.7 % (8-40); MCH 29.7 pg (25.7-33.7); MCHC 32.1 g/dl (32.0-36.0); MEAN CELL VOLUME 92.6 fl (80-96); MEAN PLT VOLUME 9.7 fl (7.5-11.1); MONO % 2.8 % (3.8-10.2); NEUT % 10.7 % (42.8-82.8); PLATELET COUNT 166 10^3/uL (134-434); RBC 3.41 M/mm3 (3.60-5.2); RDW 16.4 % (11.6-15.6)
[2021-03-23 09:51] LABS: WHITE BLOOD COUNT 59.4 K/mm3 (4.0-10.0)
[2021-03-23] MEDS ORDERED: FUROSEMIDE 40 MG/4 ML INJECTABLE VIAL IVPUSH ONE (10:00)
[2021-03-23] MEDS ORDERED: D5-1/2NS+20 MEQ KCL - 20 MEQ/1,000 ML INFUS.BAG IV ONE (10:00)
[2021-03-23] MEDS ORDERED: MAGNESIUM 1GM/D5W - 1 GM/100 ML IVPB IVPB ONE (10:00)
[2021-03-23 10:01] LABS: BLOOD UREA NITROGEN 24.2 mg/dL (7-18); CALCIUM 8.1 mg/dL (8.5-10.1)
[2021-03-23 10:02] LABS: ALBUMIN 3.6 g/dl (3.4-5.0); CREATININE 1.7 mg/dL (0.55-1.3)
[2021-03-23 10:03] LABS: BILIRUBIN,TOTAL 0.4 mg/dL (0.2-1); PHOSPHOROUS 4.4 mg/dL (2.5-4.9)
[2021-03-23 10:04] LABS: BILIRUBIN,DIRECT 0.1 mg/dL (0.0-0.2); TOT PROT 6.6 g/dl (6.4-8.2); URIC ACID 5.5 mg/dL (2.6-7.2)
[2021-03-23 10:42] LABS: ANISOCYTOSIS 0; MACROCYTOSIS 0; PLATELET ESTIMATE NORMAL
[2021-03-23] MEDS ORDERED: DEXTROSE 5%-NORMAL SALINE 1,000 ML IV ONE (13:00)
[2021-03-23 16:28] VITALS: TEMP 98.4
[2021-03-23 16:36] VITALS: BP 156/71; PULSE 64
== END 2021-03-23 16:05 | disposition home or self-care (01) ==
LOC: JONCNONCHE 06:45
PROVIDERS: ATTEND Internal Medicine Hematology & Oncology
PROC: 3E033GC Introduction of Other Therapeutic Substance into Peripheral Vein, Percutaneous Approach (ICD-10-PCS; principal; 2021-03-23)
PROC: 3E033GC Introduction of Other Therapeutic Substance into Peripheral Vein, Percutaneous Approach (ICD-10-PCS; 2021-03-23)
DX: C91.10 Chronic lymphocytic leukemia of B-cell type not having achieved remission (principal); Z76.89 Persons encountering health services in other specified circumstances
CPT/HCPCS: 36415; 80048; 80076; 83615; 84100; 84550; 85025; 96361; 96365; 96375

== ENCOUNTER 2021-03-24 07:23 | Day surgery (SDC) | payer OTHER ==
[2021-03-24] MEDS ORDERED: MAGNESIUM 1GM/D5W - 1 GM/100 ML IVPB IVPB ONE (10:00)
[2021-03-24] MEDS ORDERED: D5-1/2NS+20 MEQ KCL - 20 MEQ/1,000 ML INFUS.BAG IV ONE (10:00)
[2021-03-24 10:33] LABS: BASO % 0.4 % (0-2.0); EOS % 1.3 % (0-4.5); HEMATOCRIT 31.1 % (32.4-45.2); HEMOGLOBIN 10.2 GM/dL (10.7-15.3); LYMPH % 84.7 % (8-40); MCH 30.3 pg (25.7-33.7); MCHC 32.6 g/dl (32.0-36.0); MEAN CELL VOLUME 92.7 fl (80-96); MEAN PLT VOLUME 9.8 fl (7.5-11.1); MONO % 2.6 % (3.8-10.2); PLATELET COUNT 164 10^3/uL (134-434); RBC 3.36 M/mm3 (3.60-5.2); RDW 16.2 % (11.6-15.6)
[2021-03-24 10:40] LABS: WHITE BLOOD COUNT 55.4 K/mm3 (4.0-10.0)
[2021-03-24 10:59] LABS: CALCIUM 8.4 mg/dL (8.5-10.1)
[2021-03-24 11:00] LABS: ALBUMIN 3.7 g/dl (3.4-5.0); BLOOD UREA NITROGEN 31.8 mg/dL (7-18)
[2021-03-24] MEDS ORDERED: FUROSEMIDE 20 MG TABLET (FP) PO ONE (11:00)
[2021-03-24] MEDS ORDERED: POTASSIUM CHLORIDE TABS 20 MEQ TABLET.ER (FP) PO ONE (11:00)
[2021-03-24 11:02] LABS: URIC ACID 5.7 mg/dL (2.6-7.2)
[2021-03-24 11:03] LABS: CREATININE 1.7 mg/dL (0.55-1.3)
[2021-03-24 11:04] LABS: BILIRUBIN,TOTAL 0.3 mg/dL (0.2-1); TOT PROT 6.5 g/dl (6.4-8.2)
[2021-03-24 11:56] LABS: ANISOCYTOSIS 0; MACROCYTOSIS 0; PLATELET ESTIMATE NORMAL
[2021-03-24] MEDS ORDERED: DEXTROSE 5%-0.45% SALINE - 500 ML IV ONE (12:00)
[2021-03-24 16:35] VITALS: TEMP 97.8
[2021-03-24 16:36] VITALS: BP 161/75; PULSE 76
== END 2021-03-24 14:30 | disposition home or self-care (01) ==
LOC: JONCNONCHE 07:23
PROVIDERS: ATTEND Internal Medicine Hematology & Oncology
PROC: 3E033GC Introduction of Other Therapeutic Substance into Peripheral Vein, Percutaneous Approach (ICD-10-PCS; principal; 2021-03-24)
PROC: 3E033GC Introduction of Other Therapeutic Substance into Peripheral Vein, Percutaneous Approach (ICD-10-PCS; 2021-03-24)
DX: C91.10 Chronic lymphocytic leukemia of B-cell type not having achieved remission (principal); Z76.89 Persons encountering health services in other specified circumstances
CPT/HCPCS: 36415; 80053; 83615; 83735; 84100; 84550; 85025; 96361; 96365

== ENCOUNTER 2021-03-30 07:14 | Day surgery (SDC) | payer OTHER ==
[~2021-03-30 07:14] MED LIST: POTASSIUM CHLORIDE TABS 20 MEQ TABLET.ER (FP) PO ONE
[2021-03-30 10:07] LABS: BASO % 0.1 % (0-2.0); EOS % 1.3 % (0-4.5); HEMATOCRIT 29.7 % (32.4-45.2); HEMOGLOBIN 9.8 GM/dL (10.7-15.3); LYMPH % 67.6 % (8-40); MCH 30.7 pg (25.7-33.7); MCHC 33.1 g/dl (32.0-36.0); MEAN CELL VOLUME 92.6 fl (80-96); MONO % 4.7 % (3.8-10.2); NEUT % 26.3 % (42.8-82.8); PLATELET COUNT 174 10^3/uL (134-434); RDW 15.9 % (11.6-15.6); WHITE BLOOD COUNT 20.2 K/mm3 (4.0-10.0)
[2021-03-30] MEDS ORDERED: D5-1/2NS+20 MEQ KCL - 20 MEQ/1,000 ML INFUS.BAG IV ONE (10:15)
[2021-03-30] MEDS ORDERED: MAGNESIUM 1GM/D5W - 1 GM/100 ML IVPB IVPB ONE (10:15)
[2021-03-30] MEDS ORDERED: FUROSEMIDE 40 MG/4 ML INJECTABLE VIAL IVPUSH ONE (10:15)
[2021-03-30 11:19] LABS: ALBUMIN 3.5 g/dl (3.4-5.0); BILIRUBIN,DIRECT 0.1 mg/dL (0.0-0.2); BILIRUBIN,TOTAL 0.4 mg/dL (0.2-1); BLOOD UREA NITROGEN 28.7 mg/dL (7-18); CALCIUM 8.1 mg/dL (8.5-10.1); CREATININE 1.8 mg/dL (0.55-1.3); MAGNESIUM 1.7 mg/dL (1.8-2.4); TOT PROT 6.2 g/dl (6.4-8.2); URIC ACID 5.6 mg/dL (2.6-7.2)
[2021-03-30] MEDS ORDERED: DEXTROSE 5%-NORMAL SALINE 1,000 ML IV ONE (13:15)
[2021-03-30 13:36] LABS: ANISOCYTOSIS 1+; MACROCYTOSIS 0; OVALOCYTE 1+; PLATELET ESTIMATE NORMAL
[2021-03-30 17:50] VITALS: TEMP 98.4
[2021-03-30 17:51] VITALS: BP 133/60; PULSE 68
== END 2021-03-30 15:25 | disposition home or self-care (01) ==
LOC: JONCNONCHE 07:14
PROVIDERS: ATTEND Internal Medicine Hematology & Oncology
PROC: 3E0437Z Introduction of Electrolytic and Water Balance Substance into Central Vein, Percutaneous Approach (ICD-10-PCS; principal; 2021-03-30)
PROC: 3E043GC Introduction of Other Therapeutic Substance into Central Vein, Percutaneous Approach (ICD-10-PCS; 2021-03-30)
DX: C91.10 Chronic lymphocytic leukemia of B-cell type not having achieved remission (principal); Z76.89 Persons encountering health services in other specified circumstances
CPT/HCPCS: 36415; 80048; 80076; 83615; 83735; 84100; 84550; 85025

== ENCOUNTER 2021-04-01 19:10 | Inpatient (IN) | payer OTHER ==
[2021-04-01] MEDS ORDERED: SODIUM CHLORIDE 2,028 ML IV ONE (20:04)
[2021-04-01] MEDS ORDERED: VANCOMYCIN 1 GM in D5W (PRE-DOCKED) 1,000 MG/250 ML IVPB ONE (20:13)
[2021-04-01] MEDS ORDERED: VANCOMYCIN 1 GRAM (PRE-DOCKED) 1,000 MG/250 ML BAG IVPB ONE (20:38)
[2021-04-01 20:47] LABS: BASO % 0.3 % (0-2.0); HEMATOCRIT 30.6 % (32.4-45.2); HEMOGLOBIN 10.2 GM/dL (10.7-15.3); LYMPH % 28.4 % (8-40); MCH 30.1 pg (25.7-33.7); MCHC 33.3 g/dl (32.0-36.0); MEAN CELL VOLUME 90.3 fl (80-96); MEAN PLT VOLUME 9.2 fl (7.5-11.1); NEUT % 66.3 % (42.8-82.8); PLATELET COUNT 171 10^3/uL (134-434); RBC 3.39 M/mm3 (3.60-5.2); RDW 15.9 % (11.6-15.6); WHITE BLOOD COUNT 20.8 K/mm3 (4.0-10.0)
[2021-04-01 20:54] LABS: INR 1.23 (0.83-1.09)
[2021-04-01] MEDS ORDERED: ACETAMINOPHEN 325 MG TABLET (FP) PO ONE (20:54)
[2021-04-01 20:57] LABS: ACTIVATED PTT 29.1 SECONDS (25.2-36.5)
[2021-04-01] MEDS ORDERED: ACETAMINOPHEN 325 MG TABLET (FP) ONE (21:01)
[2021-04-01 21:05] LABS: CHLORIDE 106 mmol/L (98-107); SODIUM 138 mmol/L (136-145)
[2021-04-01 21:07] LABS: CALCIUM 8.3 mg/dL (8.5-10.1)
[2021-04-01 21:08] LABS: ALBUMIN 3.7 g/dl (3.4-5.0); ANION GAP 9 MMOL/L (8-16); CO2 22 mmol/L (21-32); GLUCOSE,RANDOM 104 mg/dL (74-106)
[2021-04-01 21:11] LABS: CREATININE 1.9 mg/dL (0.55-1.3); SGOT/AST 41 U/L (15-37); SGPT/ALT 46 U/L (13-61)
[2021-04-01 21:12] LABS: BILIRUBIN,TOTAL 0.8 mg/dL (0.2-1)
[2021-04-01 21:13] LABS: TOT PROT 6.8 g/dl (6.4-8.2)
[2021-04-01 21:14] LABS: ALK PHOS 85 U/L (45-117)
[2021-04-01 22:19] LABS: ANISOCYTOSIS 0; MACROCYTOSIS 0; PLATELET ESTIMATE NORMAL
[2021-04-01 22:21] LABS: EPI CELLS 2 /uL (0-25.1); HYALINE CASTS 1 /uL (0-3.1); PH,URINE 5.5 (5.0-8.0); URINE APPEARANCE CLEAR; URINE BACTERIA 1 /uL (0-1359); URINE BILIRUBIN NEGATIVE (NEGATIVE); URINE COLOR YELLOW; URINE GLUCOSE (UA) NEGATIVE (NEGATIVE); URINE KETONE NEGATIVE (NEGATIVE); URINE LEUK ESTERASE NEGATIVE (NEGATIVE); URINE NITRITE NEGATIVE (NEGATIVE); URINE PROTEIN 2+ (NEGATIVE); URINE RBC 6 /uL (0-23.9); URINE UROBILINOGEN 0.2 mg/dL (0.2-1.0); URINE WBC 2 /uL (0-25.8)
[2021-04-01] MEDS ORDERED: CEFEPIME 0.5 GM in DEXTROSE 5%-WATER - 100 ML IVPB SCH (23:57)
[2021-04-02 00:01] LABS: URIC ACID 5.7 mg/dL (2.6-7.2)
[2021-04-02] MEDS ORDERED: MEROPENEM 500 MG VIAL (RESTRICTED TO ID) IVPB ONE (00:59)
[2021-04-02] MEDS ORDERED: DEXTROSE 5%-WATER 100 ML IVPB ONE (00:59)
[2021-04-02] MEDS: MEROPENEM 500 MG in DEXTROSE 5%-WATER 100 ML IVPB SCH ×2 (01:03→13:19)
[2021-04-02 01:59] LABS: EPI CELLS 1 /uL (0-25.1); HYALINE CASTS 0 /uL (0-3.1); PH,URINE 5.5 (5.0-8.0); URINE APPEARANCE CLEAR; URINE BACTERIA 1 /uL (0-1359); URINE BILIRUBIN NEGATIVE (NEGATIVE); URINE COLOR YELLOW; URINE GLUCOSE (UA) NEGATIVE (NEGATIVE); URINE KETONE NEGATIVE (NEGATIVE); URINE LEUK ESTERASE NEGATIVE (NEGATIVE); URINE NITRITE NEGATIVE (NEGATIVE); URINE PROTEIN TRACE (NEGATIVE); URINE RBC 3 /uL (0-23.9); URINE UROBILINOGEN 0.2 mg/dL (0.2-1.0); URINE WBC 2 /uL (0-25.8)
[2021-04-02 02:00] VITALS: BMI 23.8
[2021-04-02] MEDS: CARVEDILOL 6.25 MG TABLET (FP) PO SCH ×3 (02:27→21:34)
[2021-04-02] MEDS: HEPARIN NA (PORCINE) 5,000 UNITS/ML 1ML VIAL SQ SCH ×3 (06:02→21:35)
[2021-04-02] MEDS: LEVOTHYROXINE NA 112 MCG TABLET (FP) PO SCH (06:02)
[2021-04-02] MEDS: ACETAMINOPHEN 325 MG TABLET (FP) PO PRN ×2 (06:02→18:53)
[2021-04-02 08:04] LABS: BASO % 0.6 % (0-2.0); HEMATOCRIT 26.4 % (32.4-45.2); LYMPH % 21.5 % (8-40); MCH 31.2 pg (25.7-33.7); MCHC 34.2 g/dl (32.0-36.0); MEAN CELL VOLUME 91.1 fl (80-96); MEAN PLT VOLUME 9.8 fl (7.5-11.1); MONO % 34.6 % (3.8-10.2); NEUT % 43.3 % (42.8-82.8); PLATELET COUNT 151 10^3/uL (134-434); RDW 15.6 % (11.6-15.6); WHITE BLOOD COUNT 16.7 K/mm3 (4.0-10.0)
[2021-04-02 08:34] LABS: CALCIUM 7.9 mg/dL (8.5-10.1); MAGNESIUM 1.7 mg/dL (1.8-2.4)
[2021-04-02 08:36] LABS: CREATININE 1.7 mg/dL (0.55-1.3)
[2021-04-02 08:37] LABS: PHOSPHOROUS 3.7 mg/dL (2.5-4.9)
[2021-04-02 08:38] LABS: BILIRUBIN,TOTAL 0.9 mg/dL (0.2-1); TOT PROT 5.6 g/dl (6.4-8.2)
[2021-04-02 08:46] LABS: ALBUMIN 2.8 g/dl (3.4-5.0)
[2021-04-02] MEDS ORDERED: PT OWN MED DRAWER 7, Y5N ONE (09:12)
[2021-04-02] MEDS: valACYclovir HCL 500 MG TABLET (FP) PO SCH (10:01)
[2021-04-02] MEDS: LOPERAMIDE HCL 2 MG CAPSULE PO PRN (10:01)
[2021-04-02] MEDS: ENTECAVIR 0.5 MG TABLET PO SCH (10:02)
[2021-04-02] MEDS: ALLOPURINOL 100 MG TABLET (FP) PO SCH (10:02)
[2021-04-02 10:39] LABS: ANISOCYTOSIS 2+; MACROCYTOSIS 1+; OVALOCYTE 1+; PLATELET ESTIMATE DECREASED; TOXIC GRANULATION 1+
[2021-04-02] MEDS: VANCOMYCIN 1 GM in D5W (PRE-DOCKED) 1,000 MG/250 ML IVPB SCH (16:54)
[2021-04-02] MEDS: SODIUM CHLORIDE 1,000 ML IV SCH (16:54)
[2021-04-02] MEDS ORDERED: MAGNESIUM SULF 50% (8.12 MEQ/2 ML-1 GM VIAL) IVPB ONE (17:00)
[2021-04-02] MEDS: ATORVASTATIN CA 10 MG TABLET (FP) PO SCH (21:34)
[2021-04-02] MEDS: LOSARTAN POTASSIUM 50 MG TABLET PO SCH (21:34)
[2021-04-02] MEDS ORDERED: MEROPENEM 500 MG in DEXTROSE 5%-WATER 100 ML IVPB SCH (22:00)
[2021-04-02] MEDS ORDERED: amLODIPine BESYLATE 10 MG TABLET (FP) PO SCH (22:00)
[2021-04-02] MEDS ORDERED: LOSARTAN POTASSIUM 50 MG TABLET PO SCH (22:00)
[2021-04-02] MEDS ORDERED: HYDROCHLOROTHIAZIDE 25 MG TABLET (FP) PO SCH (22:00)
[2021-04-03] MEDS: HEPARIN NA (PORCINE) 5,000 UNITS/ML 1ML VIAL SQ SCH ×3 (06:27→21:32)
[2021-04-03] MEDS: LEVOTHYROXINE NA 112 MCG TABLET (FP) PO SCH (06:28)
[2021-04-03] MEDS ORDERED: PT OWN MED DRAWER 7, Y5N ONE (08:56)
[2021-04-03] MEDS: VANCOMYCIN 1 GM in D5W (PRE-DOCKED) 1,000 MG/250 ML IVPB SCH (09:53)
[2021-04-03] MEDS: valACYclovir HCL 500 MG TABLET (FP) PO SCH (09:54)
[2021-04-03] MEDS: ALLOPURINOL 100 MG TABLET (FP) PO SCH (09:55)
[2021-04-03] MEDS: CARVEDILOL 6.25 MG TABLET (FP) PO SCH ×2 (09:55→21:32)
[2021-04-03] MEDS: SODIUM CHLORIDE 1,000 ML IV SCH (15:22)
[2021-04-03] MEDS: LOPERAMIDE HCL 2 MG CAPSULE PO PRN (15:22)
[2021-04-03] MEDS: ATORVASTATIN CA 10 MG TABLET (FP) PO SCH (21:32)
[2021-04-03] MEDS: LOSARTAN POTASSIUM 50 MG TABLET PO SCH (21:33)
[2021-04-04] MEDS: HEPARIN NA (PORCINE) 5,000 UNITS/ML 1ML VIAL SQ SCH ×3 (06:12→21:42)
[2021-04-04] MEDS: LEVOTHYROXINE NA 112 MCG TABLET (FP) PO SCH (06:12)
[2021-04-04 06:34] LABS: BASO % 0.1 % (0-2.0); EOS % 4.2 % (0-4.5); HEMOGLOBIN 8.5 GM/dL (10.7-15.3); LYMPH % 25.1 % (8-40); MCH 30.6 pg (25.7-33.7); MCHC 33.9 g/dl (32.0-36.0); MEAN CELL VOLUME 90.3 fl (80-96); MEAN PLT VOLUME 9.2 fl (7.5-11.1); MONO % 45.6 % (3.8-10.2); PLATELET COUNT 166 10^3/uL (134-434); RBC 2.77 M/mm3 (3.60-5.2); RDW 15.6 % (11.6-15.6); WHITE BLOOD COUNT 8.9 K/mm3 (4.0-10.0)
[2021-04-04 06:56] LABS: BLOOD UREA NITROGEN 30.1 mg/dL (7-18); CALCIUM 7.9 mg/dL (8.5-10.1); MAGNESIUM 2.3 mg/dL (1.8-2.4)
[2021-04-04 06:58] LABS: CREATININE 1.6 mg/dL (0.55-1.3)
[2021-04-04 07:00] LABS: PHOSPHOROUS 3.6 mg/dL (2.5-4.9)
[2021-04-04] MEDS ORDERED: PT OWN MED DRAWER 7, Y5N ONE ×2 (09:00→13:52)
[2021-04-04] MEDS: valACYclovir HCL 500 MG TABLET (FP) PO SCH (09:04)
[2021-04-04] MEDS: CARVEDILOL 6.25 MG TABLET (FP) PO SCH ×2 (09:04→21:40)
[2021-04-04] MEDS: ALLOPURINOL 100 MG TABLET (FP) PO SCH (09:05)
[2021-04-04] MEDS: ENTECAVIR 0.5 MG TABLET PO SCH (09:06)
[2021-04-04 09:59] LABS: ANISOCYTOSIS 1+; MACROCYTOSIS 0; PLATELET ESTIMATE NORMAL; TARGET CELLS 1+
[2021-04-04] MEDS: SODIUM CHLORIDE 1,000 ML IV SCH ×2 (10:07→12:56)
[2021-04-04] MEDS ORDERED: DEXTROSE 5%-WATER - 50 ML IVPB ONE ×3 (13:53→19:36)
[2021-04-04] MEDS ORDERED: ceFAZolin SODIUM 1 GM VIAL ONE ×3 (13:53→19:36)
[2021-04-04] MEDS: CEFAZOLIN 1 GM in DEXTROSE 5%-WATER - 1 GM/50 ML IVPB IVPB SCH ×2 (14:20→19:41)
[2021-04-04] MEDS: LOSARTAN POTASSIUM 50 MG TABLET PO SCH (21:41)
[2021-04-04] MEDS: ATORVASTATIN CA 10 MG TABLET (FP) PO SCH (21:42)
[2021-04-05] MEDS ORDERED: ceFAZolin SODIUM 1 GM VIAL ONE ×3 (01:21→17:39)
[2021-04-05] MEDS ORDERED: DEXTROSE 5%-WATER - 50 ML IVPB ONE ×3 (01:21→17:39)
[2021-04-05] MEDS: CEFAZOLIN 1 GM in DEXTROSE 5%-WATER - 1 GM/50 ML IVPB IVPB SCH ×3 (01:23→17:58)
[2021-04-05] MEDS: HEPARIN NA (PORCINE) 5,000 UNITS/ML 1ML VIAL SQ SCH ×3 (05:57→21:25)
[2021-04-05] MEDS: LEVOTHYROXINE NA 112 MCG TABLET (FP) PO SCH (05:59)
[2021-04-05 08:43] LABS: HEMATOCRIT 27.4 % (32.4-45.2); HEMOGLOBIN 9.2 GM/dL (10.7-15.3); MCH 30.6 pg (25.7-33.7); MCHC 33.7 g/dl (32.0-36.0); MEAN CELL VOLUME 90.8 fl (80-96); MEAN PLT VOLUME 8.8 fl (7.5-11.1); PLATELET COUNT 205 10^3/uL (134-434); RBC 3.01 M/mm3 (3.60-5.2); RDW 15.9 % (11.6-15.6); WHITE BLOOD COUNT 8.5 K/mm3 (4.0-10.0)
[2021-04-05] MEDS: ALLOPURINOL 100 MG TABLET (FP) PO SCH (09:20)
[2021-04-05] MEDS: CARVEDILOL 6.25 MG TABLET (FP) PO SCH ×2 (09:20→21:23)
[2021-04-05] MEDS: valACYclovir HCL 500 MG TABLET (FP) PO SCH (09:20)
[2021-04-05] MEDS: SODIUM CHLORIDE 1,000 ML IV SCH ×2 (09:22→13:22)
[2021-04-05 09:34] LABS: CALCIUM 8.3 mg/dL (8.5-10.1)
[2021-04-05 09:36] LABS: BLOOD UREA NITROGEN 23.9 mg/dL (7-18)
[2021-04-05 09:38] LABS: CREATININE 1.5 mg/dL (0.55-1.3)
[2021-04-05 10:38] LABS: ANISOCYTOSIS 0; MACROCYTOSIS 0; PLATELET ESTIMATE NORMAL
[2021-04-05] MEDS: ATORVASTATIN CA 10 MG TABLET (FP) PO SCH (21:23)
[2021-04-05] MEDS: LOSARTAN POTASSIUM 50 MG TABLET PO SCH (21:23)
[2021-04-06] MEDS ORDERED: ceFAZolin SODIUM 1 GM VIAL ONE ×3 (01:20→17:10)
[2021-04-06] MEDS ORDERED: DEXTROSE 5%-WATER - 50 ML IVPB ONE ×3 (01:21→17:10)
[2021-04-06] MEDS: CEFAZOLIN 1 GM in DEXTROSE 5%-WATER - 1 GM/50 ML IVPB IVPB SCH ×3 (01:31→17:13)
[2021-04-06] MEDS: HEPARIN NA (PORCINE) 5,000 UNITS/ML 1ML VIAL SQ SCH ×3 (05:30→21:38)
[2021-04-06] MEDS: LEVOTHYROXINE NA 112 MCG TABLET (FP) PO SCH (06:04)
[2021-04-06 08:36] LABS: BASO % 1.1 % (0-2.0); EOS % 3.5 % (0-4.5); HEMATOCRIT 27.1 % (32.4-45.2); HEMOGLOBIN 9.1 GM/dL (10.7-15.3); LYMPH % 34.4 % (8-40); MCH 30.2 pg (25.7-33.7); MCHC 33.5 g/dl (32.0-36.0); MEAN CELL VOLUME 90.1 fl (80-96); MEAN PLT VOLUME 9.2 fl (7.5-11.1); MONO % 3.9 % (3.8-10.2); NEUT % 57.1 % (42.8-82.8); PLATELET COUNT 219 10^3/uL (134-434); RBC 3.01 M/mm3 (3.60-5.2); RDW 15.8 % (11.6-15.6); WHITE BLOOD COUNT 7.1 K/mm3 (4.0-10.0)
[2021-04-06 08:57] LABS: CALCIUM 8.6 mg/dL (8.5-10.1)
[2021-04-06 08:58] LABS: BLOOD UREA NITROGEN 18.4 mg/dL (7-18)
[2021-04-06 09:01] LABS: CREATININE 1.2 mg/dL (0.55-1.3)
[2021-04-06 09:12] LABS: ANISOCYTOSIS 0; HELMET CELLS 0; HOWELL-JOLLY BODIES 0; MACROCYTOSIS 0; OVALOCYTE 0; PLATELET ESTIMATE NORMAL; ROULEAU 0; SICKELED CELLS 0; TARGET CELLS 0; TEAR DROP CELLS 0; TOXIC GRANULATION 0
[2021-04-06] MEDS: valACYclovir HCL 500 MG TABLET (FP) PO SCH (09:43)
[2021-04-06] MEDS: CARVEDILOL 6.25 MG TABLET (FP) PO SCH ×2 (09:43→21:38)
[2021-04-06] MEDS: ENTECAVIR 0.5 MG TABLET PO SCH (09:44)
[2021-04-06] MEDS: ALLOPURINOL 100 MG TABLET (FP) PO SCH (09:44)
[2021-04-06] MEDS: VANCOMYCIN 1 GM in D5W (PRE-DOCKED) 1,000 MG/250 ML IVPB SCH ×2 (09:44→12:00)
[2021-04-06] MEDS: LOPERAMIDE HCL 2 MG CAPSULE PO PRN (09:52)
[2021-04-06] MEDS: ATORVASTATIN CA 10 MG TABLET (FP) PO SCH (21:38)
[2021-04-06] MEDS: LOSARTAN POTASSIUM 50 MG TABLET PO SCH (21:38)
[2021-04-07] MEDS ORDERED: ceFAZolin SODIUM 1 GM VIAL ONE ×3 (01:17→16:36)
[2021-04-07] MEDS ORDERED: DEXTROSE 5%-WATER - 50 ML IVPB ONE ×3 (01:18→16:37)
[2021-04-07] MEDS: CEFAZOLIN 1 GM in DEXTROSE 5%-WATER - 1 GM/50 ML IVPB IVPB SCH ×3 (01:21→17:37)
[2021-04-07] MEDS: ACETAMINOPHEN 325 MG TABLET (FP) PO PRN (04:18)
[2021-04-07] MEDS: HEPARIN NA (PORCINE) 5,000 UNITS/ML 1ML VIAL SQ SCH ×3 (06:53→21:28)
[2021-04-07] MEDS: LEVOTHYROXINE NA 112 MCG TABLET (FP) PO SCH (06:53)
[2021-04-07 09:14] LABS: BASO % 4.8 % (0-2.0); EOS % 3.4 % (0-4.5); HEMATOCRIT 25.7 % (32.4-45.2); HEMOGLOBIN 8.7 GM/dL (10.7-15.3); LYMPH % 36.4 % (8-40); MCH 30.8 pg (25.7-33.7); MCHC 33.9 g/dl (32.0-36.0); MEAN CELL VOLUME 90.8 fl (80-96); MEAN PLT VOLUME 9.2 fl (7.5-11.1); MONO % 6.5 % (3.8-10.2); NEUT % 48.9 % (42.8-82.8); PLATELET COUNT 234 10^3/uL (134-434); RBC 2.83 M/mm3 (3.60-5.2); RDW 15.5 % (11.6-15.6); WHITE BLOOD COUNT 5.9 K/mm3 (4.0-10.0)
[2021-04-07] MEDS: valACYclovir HCL 500 MG TABLET (FP) PO SCH (09:23)
[2021-04-07] MEDS: CARVEDILOL 6.25 MG TABLET (FP) PO SCH ×2 (09:23→21:28)
[2021-04-07 09:34] LABS: CALCIUM 8.2 mg/dL (8.5-10.1)
[2021-04-07 09:36] LABS: BLOOD UREA NITROGEN 17.4 mg/dL (7-18)
[2021-04-07 09:38] LABS: CREATININE 1.4 mg/dL (0.55-1.3)
[2021-04-07] MEDS ORDERED: PT OWN MED DRAWER 7, Y5N ONE (09:41)
[2021-04-07] MEDS: ALLOPURINOL 100 MG TABLET (FP) PO SCH (09:53)
[2021-04-07] MEDS: LOPERAMIDE HCL 2 MG CAPSULE PO PRN (09:53)
[2021-04-07 11:27] LABS: ANISOCYTOSIS 1+; MACROCYTOSIS 1+
[2021-04-07] MEDS: LOSARTAN POTASSIUM 50 MG TABLET PO SCH (21:28)
[2021-04-07] MEDS: ATORVASTATIN CA 10 MG TABLET (FP) PO SCH (21:28)
[2021-04-08] MEDS ORDERED: ceFAZolin SODIUM 1 GM VIAL ONE ×3 (01:27→16:59)
[2021-04-08] MEDS ORDERED: DEXTROSE 5%-WATER - 50 ML IVPB ONE ×3 (01:27→16:59)
[2021-04-08] MEDS: CEFAZOLIN 1 GM in DEXTROSE 5%-WATER - 1 GM/50 ML IVPB IVPB SCH ×3 (01:33→17:32)
[2021-04-08] MEDS ORDERED: amLODIPine BESYLATE 5 MG TABLET (FP) PO ONE (01:36)
[2021-04-08] MEDS ORDERED: CARVEDILOL 3.125 MG TABLET (FP) PO ONE (05:30)
[2021-04-08] MEDS: HEPARIN NA (PORCINE) 5,000 UNITS/ML 1ML VIAL SQ SCH ×3 (05:45→21:13)
[2021-04-08] MEDS: LEVOTHYROXINE NA 112 MCG TABLET (FP) PO SCH (06:18)
[2021-04-08 07:54] LABS: BASO % 2.1 % (0-2.0); EOS % 3.2 % (0-4.5); HEMATOCRIT 27.6 % (32.4-45.2); HEMOGLOBIN 9.2 GM/dL (10.7-15.3); LYMPH % 34.5 % (8-40); MCH 30.1 pg (25.7-33.7); MCHC 33.4 g/dl (32.0-36.0); MEAN PLT VOLUME 8.9 fl (7.5-11.1); MONO % 4.3 % (3.8-10.2); NEUT % 55.9 % (42.8-82.8); PLATELET COUNT 266 10^3/uL (134-434); RBC 3.06 M/mm3 (3.60-5.2); RDW 15.5 % (11.6-15.6); WHITE BLOOD COUNT 6.3 K/mm3 (4.0-10.0)
[2021-04-08 08:03] LABS: CALCIUM 8.6 mg/dL (8.5-10.1)
[2021-04-08 08:04] LABS: BLOOD UREA NITROGEN 15.6 mg/dL (7-18)
[2021-04-08 08:07] LABS: CREATININE 1.3 mg/dL (0.55-1.3)
[2021-04-08] MEDS: ALLOPURINOL 100 MG TABLET (FP) PO SCH (09:28)
[2021-04-08] MEDS: valACYclovir HCL 500 MG TABLET (FP) PO SCH (09:30)
[2021-04-08] MEDS: amLODIPine BESYLATE 10 MG TABLET (FP) PO SCH (09:31)
[2021-04-08] MEDS: ENTECAVIR 0.5 MG TABLET PO SCH (09:31)
[2021-04-08 10:03] LABS: PLATELET ESTIMATE ADEQUATE
[2021-04-08] MEDS: HYDROCHLOROTHIAZIDE 25 MG TABLET (FP) PO SCH (17:32)
[2021-04-08] MEDS: LOSARTAN POTASSIUM 50 MG TABLET PO SCH (21:13)
[2021-04-08] MEDS: CARVEDILOL 12.5 MG TABLET (FP) PO SCH (21:13)
[2021-04-08] MEDS: ATORVASTATIN CA 10 MG TABLET (FP) PO SCH (21:14)
[2021-04-09] MEDS ORDERED: DEXTROSE 5%-WATER - 50 ML IVPB ONE ×2 (01:00→08:35)
[2021-04-09] MEDS ORDERED: ceFAZolin SODIUM 1 GM VIAL ONE ×2 (01:00→08:35)
[2021-04-09] MEDS: CEFAZOLIN 1 GM in DEXTROSE 5%-WATER - 1 GM/50 ML IVPB IVPB SCH ×2 (01:03→09:29)
[2021-04-09] MEDS: LEVOTHYROXINE NA 112 MCG TABLET (FP) PO SCH (06:14)
[2021-04-09] MEDS: HEPARIN NA (PORCINE) 5,000 UNITS/ML 1ML VIAL SQ SCH (06:15)
[2021-04-09 08:58] LABS: EOS % 2.7 % (0-4.5); HEMATOCRIT 28.2 % (32.4-45.2); HEMOGLOBIN 9.6 GM/dL (10.7-15.3); LYMPH % 38.3 % (8-40); MCHC 33.9 g/dl (32.0-36.0); MEAN CELL VOLUME 91.2 fl (80-96); MEAN PLT VOLUME 9.1 fl (7.5-11.1); MONO % 7.8 % (3.8-10.2); NEUT % 49.2 % (42.8-82.8); PLATELET COUNT 293 10^3/uL (134-434); RBC 3.09 M/mm3 (3.60-5.2); RDW 16.1 % (11.6-15.6)
[2021-04-09 09:15] LABS: CALCIUM 8.7 mg/dL (8.5-10.1)
[2021-04-09 09:16] LABS: BLOOD UREA NITROGEN 18.2 mg/dL (7-18)
[2021-04-09 09:19] LABS: CREATININE 1.3 mg/dL (0.55-1.3); PHOSPHOROUS 3.4 mg/dL (2.5-4.9)
[2021-04-09] MEDS: amLODIPine BESYLATE 10 MG TABLET (FP) PO SCH (09:28)
[2021-04-09] MEDS: ALLOPURINOL 100 MG TABLET (FP) PO SCH (09:28)
[2021-04-09] MEDS: valACYclovir HCL 500 MG TABLET (FP) PO SCH (09:28)
[2021-04-09] MEDS: CARVEDILOL 12.5 MG TABLET (FP) PO SCH (09:28)
[2021-04-09] MEDS: HYDROCHLOROTHIAZIDE 25 MG TABLET (FP) PO SCH (09:28)
[2021-04-09 12:38] VITALS: BP 132/68; PULSE 79; TEMP 98.9
[2021-04-09 13:09] LABS: ANISOCYTOSIS 1+; MACROCYTOSIS 0; OVALOCYTE 1+; PLATELET ESTIMATE NORMAL
== END 2021-04-09 14:40 | disposition home or self-care (01) | DRG 314 ==
LOC: JER 19:10 → JERBED 21:34 → J7W 04-02 00:01
PROVIDERS: ADMIT Internal Medicine; ATTEND Internal Medicine
PROC: 0JPT0WZ Removal of Totally Implantable Vascular Access Device from Trunk Subcutaneous Tissue and Fascia, Open Approach (ICD-10-PCS; principal; 2021-04-02)
PROC: 05HB33Z Insertion of Infusion Device into Right Basilic Vein, Percutaneous Approach (ICD-10-PCS; 2021-04-09)
DX: T80.211A Bloodstream infection due to central venous catheter, initial encounter (principal); A41.1 Sepsis due to other specified staphylococcus; L03.313 Cellulitis of chest wall; C91.10 Chronic lymphocytic leukemia of B-cell type not having achieved remission; I10 Essential (primary) hypertension; E78.5 Hyperlipidemia, unspecified; E03.9 Hypothyroidism, unspecified; K58.9 Irritable bowel syndrome, unspecified; N18.30 Chronic kidney disease, stage 3 unspecified; Y83.8 Other surgical procedures as the cause of abnormal reaction of the patient, or of later complication, without mention of misadventure at the time of the procedure
CPT/HCPCS: 36415; 36561; 36569; 36590; 71045-TC-FY; 77001-TC-FY; 80048; 80053; 80076; 81003; 83605; 83615; 83735; 84100; 84484; 84550; 85025; 85610; 85730; 87040; 87070; 87086; 87116; 87186; 87205; 87206; 93005; 93010; 93306-TC; 97116-GP; 97161-GP; 99285-25; C1788; C9803; G0480; J1644; Q5115; U0003; U0005

== ENCOUNTER 2021-04-14 07:53 | Day surgery (SDC) | payer OTHER ==
[2021-04-14] MEDS ORDERED: D5-1/2NS+20 MEQ KCL - 20 MEQ/1,000 ML INFUS.BAG IV SCH (09:30)
[2021-04-14] MEDS ORDERED: DEXTROSE 5%-0.45% SALINE 500 ML IV SCH (12:23)
[2021-04-14 16:33] VITALS: BP 152/54; PULSE 78; TEMP 98.1
== END 2021-04-14 14:00 | disposition home or self-care (01) ==
LOC: JONCNONCHE 07:53
PROVIDERS: ATTEND Internal Medicine Hematology & Oncology
PROC: 3E0437Z Introduction of Electrolytic and Water Balance Substance into Central Vein, Percutaneous Approach (ICD-10-PCS; principal; 2021-04-14)
DX: C91.10 Chronic lymphocytic leukemia of B-cell type not having achieved remission (principal); Z76.89 Persons encountering health services in other specified circumstances
CPT/HCPCS: 96360; 96361

== ENCOUNTER 2021-04-15 07:55 | Day surgery (SDC) | payer OTHER ==
[2021-04-15] MEDS ORDERED: D5-1/2NS+20 MEQ KCL - 20 MEQ/1,000 ML INFUS.BAG IV ONE (10:00)
[2021-04-15 10:58] LABS: HEMATOCRIT 26.9 % (32.4-45.2); MCH 30.4 pg (25.7-33.7); MCHC 33.4 g/dl (32.0-36.0); MEAN CELL VOLUME 91.2 fl (80-96); MEAN PLT VOLUME 8.3 fl (7.5-11.1); PLATELET COUNT 245 10^3/uL (134-434); RBC 2.95 M/mm3 (3.60-5.2); RDW 15.7 % (11.6-15.6); WHITE BLOOD COUNT 4.7 K/mm3 (4.0-10.0)
[2021-04-15 11:21] LABS: CALCIUM 8.4 mg/dL (8.5-10.1); MAGNESIUM 2.2 mg/dL (1.8-2.4)
[2021-04-15 11:22] LABS: ALBUMIN 3.2 g/dl (3.4-5.0)
[2021-04-15 11:24] LABS: CREATININE 1.5 mg/dL (0.55-1.3)
[2021-04-15 11:25] LABS: PHOSPHOROUS 2.8 mg/dL (2.5-4.9)
[2021-04-15 11:26] LABS: TOT PROT 6.1 g/dl (6.4-8.2)
[2021-04-15 11:27] LABS: BILIRUBIN,TOTAL 0.3 mg/dL (0.2-1)
[2021-04-15 11:29] LABS: URIC ACID 4.4 mg/dL (2.6-7.2)
[2021-04-15 12:01] LABS: ANISOCYTOSIS 0; HELMET CELLS 0; HOWELL-JOLLY BODIES 0; MACROCYTOSIS 0; OVALOCYTE 0; PLATELET ESTIMATE NORMAL; ROULEAU 0; SICKELED CELLS 0; TARGET CELLS 0; TEAR DROP CELLS 0; TOXIC GRANULATION 0
[2021-04-15] MEDS ORDERED: DEXTROSE 5%-0.45% SALINE 1,000 ML IV ONE (12:45)
[2021-04-15 14:48] VITALS: TEMP 98.3
[2021-04-15 14:49] VITALS: BP 124/61; PULSE 61
== END 2021-04-15 14:15 | disposition home or self-care (01) ==
LOC: JONCNONCHE 07:55
PROVIDERS: ATTEND Internal Medicine Hematology & Oncology
PROC: 3E0437Z Introduction of Electrolytic and Water Balance Substance into Central Vein, Percutaneous Approach (ICD-10-PCS; principal; 2021-04-15)
DX: C91.10 Chronic lymphocytic leukemia of B-cell type not having achieved remission (principal); K58.2 Mixed irritable bowel syndrome
CPT/HCPCS: 36415; 80053; 83615; 83735; 84100; 84550; 85025; 96360; 96361

== ENCOUNTER 2021-04-19 08:13 | Day surgery (SDC) | payer OTHER ==
[2021-04-19] MEDS ORDERED: SODIUM CHLORIDE 0.45%/POT 20 MEQ/1,000 ML INFUS.BAG IV ONE (09:00)
[2021-04-19] MEDS ORDERED: MAGNESIUM 1GM/D5W - 1 GM/100 ML IVPB IVPB ONE (10:00)
[2021-04-19 10:20] LABS: HEMATOCRIT 28.5 % (32.4-45.2); HEMOGLOBIN 9.6 GM/dL (10.7-15.3); MCH 30.7 pg (25.7-33.7); MCHC 33.6 g/dl (32.0-36.0); MEAN CELL VOLUME 91.6 fl (80-96); MEAN PLT VOLUME 8.6 fl (7.5-11.1); PLATELET COUNT 242 10^3/uL (134-434); RBC 3.11 M/mm3 (3.60-5.2); RDW 15.3 % (11.6-15.6); WHITE BLOOD COUNT 5.2 K/mm3 (4.0-10.0)
[2021-04-19 10:44] LABS: ALBUMIN 3.4 g/dl (3.4-5.0); CALCIUM 8.6 mg/dL (8.5-10.1)
[2021-04-19 10:47] LABS: BILIRUBIN,DIRECT 0.1 mg/dL (0.0-0.2); CREATININE 1.6 mg/dL (0.55-1.3); PHOSPHOROUS 3.6 mg/dL (2.5-4.9); URIC ACID 4.7 mg/dL (2.6-7.2)
[2021-04-19 10:48] LABS: BILIRUBIN,TOTAL 0.4 mg/dL (0.2-1)
[2021-04-19 10:49] LABS: TOT PROT 6.3 g/dl (6.4-8.2)
[2021-04-19 11:26] LABS: ANISOCYTOSIS 0; HELMET CELLS 0; HOWELL-JOLLY BODIES 0; MACROCYTOSIS 0; OVALOCYTE 0; PLATELET ESTIMATE NORMAL; ROULEAU 0; SICKELED CELLS 0; TARGET CELLS 0; TEAR DROP CELLS 0; TOXIC GRANULATION 0
[2021-04-19] MEDS ORDERED: SODIUM CHLORIDE 0.45% 500 ML IV ONE (12:30)
[2021-04-19 16:17] VITALS: TEMP 98.5
[2021-04-19 16:18] VITALS: BP 152/66; PULSE 78
== END 2021-04-19 14:00 | disposition home or self-care (01) ==
LOC: JONCNONCHE 08:13
PROVIDERS: ATTEND Internal Medicine Hematology & Oncology
PROC: 3E043GC Introduction of Other Therapeutic Substance into Central Vein, Percutaneous Approach (ICD-10-PCS; principal; 2021-04-19)
PROC: 3E043GC Introduction of Other Therapeutic Substance into Central Vein, Percutaneous Approach (ICD-10-PCS; 2021-04-19)
DX: C91.10 Chronic lymphocytic leukemia of B-cell type not having achieved remission (principal); K58.2 Mixed irritable bowel syndrome; Z76.89 Persons encountering health services in other specified circumstances
CPT/HCPCS: 36415; 80048; 80076; 83615; 84100; 84550; 85025; 96361; 96365; J3480

== ENCOUNTER 2021-04-21 06:45 | Day surgery (SDC) | payer OTHER ==
[2021-04-21 08:24] LABS: HEMATOCRIT 27.9 % (32.4-45.2); HEMOGLOBIN 9.3 GM/dL (10.7-15.3); MCH 30.2 pg (25.7-33.7); MCHC 33.1 g/dl (32.0-36.0); MEAN CELL VOLUME 91.3 fl (80-96); MEAN PLT VOLUME 7.7 fl (7.5-11.1); PLATELET COUNT 230 10^3/uL (134-434); RBC 3.06 M/mm3 (3.60-5.2); RDW 15.6 % (11.6-15.6); WHITE BLOOD COUNT 6.1 K/mm3 (4.0-10.0)
[2021-04-21 08:45] LABS: CALCIUM 8.8 mg/dL (8.5-10.1); MAGNESIUM 2.1 mg/dL (1.8-2.4)
[2021-04-21 08:46] LABS: ALBUMIN 3.6 g/dl (3.4-5.0); BLOOD UREA NITROGEN 29.5 mg/dL (7-18)
[2021-04-21 08:47] LABS: URIC ACID 4.3 mg/dL (2.6-7.2)
[2021-04-21 08:48] LABS: BILIRUBIN,DIRECT 0.1 mg/dL (0.0-0.2); CREATININE 1.6 mg/dL (0.55-1.3)
[2021-04-21 08:49] LABS: PHOSPHOROUS 3.4 mg/dL (2.5-4.9)
[2021-04-21 08:50] LABS: BILIRUBIN,TOTAL 0.2 mg/dL (0.2-1); TOT PROT 6.8 g/dl (6.4-8.2)
[2021-04-21 08:53] LABS: ANISOCYTOSIS 0; HELMET CELLS 0; HOWELL-JOLLY BODIES 0; MACROCYTOSIS 0; OVALOCYTE 0; PLATELET ESTIMATE NORMAL; ROULEAU 0; SICKELED CELLS 0; TARGET CELLS 0; TEAR DROP CELLS 0; TOXIC GRANULATION 0
[2021-04-21] MEDS ORDERED: SODIUM CHLORIDE 250 ML IV ONE (09:00)
[2021-04-21] MEDS ORDERED: ONDANSETRON INJECTION 8 MG, DIPHENHYDRAMINE 25 MG in SODIUM CHLORIDE 100 ML IVPB ONE (09:30)
[2021-04-21] MEDS ORDERED: ACETAMINOPHEN 325 MG TABLET (FP) PO ONE (09:30)
[2021-04-21] MEDS ORDERED: RITUXIMAB-ABBS 500 MG, RITUXIMAB-ABBS 164 MG in SODIUM CHLORIDE 597.6 ML IVPB ONE (10:00)
[2021-04-21 17:26] VITALS: PULSE 66; TEMP 98.7
[2021-04-21 17:27] VITALS: BP 144/65
== END 2021-04-21 15:30 | disposition home or self-care (01) ==
LOC: JONCCHEMO 06:45
PROVIDERS: ATTEND Internal Medicine Hematology & Oncology
DX: Z51.11 Encounter for antineoplastic chemotherapy (principal); C91.10 Chronic lymphocytic leukemia of B-cell type not having achieved remission; K58.2 Mixed irritable bowel syndrome
CPT/HCPCS: 36415; 80048; 80076; 83615; 83735; 84100; 84550; 85025; 96361; 96375; 96413; 96415; Q5115

== ENCOUNTER 2021-04-22 06:56 | Day surgery (SDC) | payer OTHER ==
[2021-04-22 09:41] LABS: HEMATOCRIT 27.4 % (32.4-45.2); HEMOGLOBIN 9.1 GM/dL (10.7-15.3); MCH 30.4 pg (25.7-33.7); MCHC 33.3 g/dl (32.0-36.0); MEAN CELL VOLUME 91.3 fl (80-96); PLATELET COUNT 201 10^3/uL (134-434); RDW 15.1 % (11.6-15.6); WHITE BLOOD COUNT 6.1 K/mm3 (4.0-10.0)
[2021-04-22] MEDS ORDERED: D5-NS + 20 MEQ KCL - 20 MEQ/1,000 ML INFUS.BAG IV ONE (10:00)
[2021-04-22] MEDS ORDERED: MAGNESIUM 1GM/D5W - 1 GM/100 ML IVPB IVPB ONE (10:00)
[2021-04-22 10:07] LABS: CALCIUM 8.8 mg/dL (8.5-10.1); MAGNESIUM 1.9 mg/dL (1.8-2.4)
[2021-04-22 10:08] LABS: ALBUMIN 3.5 g/dl (3.4-5.0); BLOOD UREA NITROGEN 28.5 mg/dL (7-18)
[2021-04-22 10:10] LABS: BILIRUBIN,DIRECT 0.1 mg/dL (0.0-0.2); CREATININE 1.5 mg/dL (0.55-1.3)
[2021-04-22 10:11] LABS: PHOSPHOROUS 3.4 mg/dL (2.5-4.9); TOT PROT 6.5 g/dl (6.4-8.2)
[2021-04-22 10:13] LABS: BILIRUBIN,TOTAL 0.4 mg/dL (0.2-1)
[2021-04-22 10:38] LABS: ANISOCYTOSIS 0; HELMET CELLS 0; HOWELL-JOLLY BODIES 0; MACROCYTOSIS 0; OVALOCYTE 0; PLATELET ESTIMATE NORMAL; ROULEAU 0; SICKELED CELLS 0; TARGET CELLS 0; TEAR DROP CELLS 0; TOXIC GRANULATION 0
[2021-04-22] MEDS ORDERED: DEXTROSE 5%-NORMAL SALINE 500 ML IV ONE (13:00)
[2021-04-22 16:31] VITALS: TEMP 98.4
[2021-04-22 16:45] VITALS: BP 157/49; PULSE 60
== END 2021-04-22 15:15 | disposition home or self-care (01) ==
LOC: JONCNONCHE 06:56
PROVIDERS: ATTEND Internal Medicine Hematology & Oncology
PROC: 3E033GC Introduction of Other Therapeutic Substance into Peripheral Vein, Percutaneous Approach (ICD-10-PCS; principal; 2021-04-22)
PROC: 3E0337Z Introduction of Electrolytic and Water Balance Substance into Peripheral Vein, Percutaneous Approach (ICD-10-PCS; 2021-04-22)
DX: C91.10 Chronic lymphocytic leukemia of B-cell type not having achieved remission (principal); K58.2 Mixed irritable bowel syndrome
CPT/HCPCS: 36415; 80048; 80076; 83615; 83735; 84100; 84550; 85025; 96361; 96365

== ENCOUNTER 2021-04-28 06:55 | Day surgery (SDC) | payer OTHER ==
[2021-04-28] MEDS ORDERED: SODIUM CHLORIDE 250 ML IVPB ONE (09:00)
[2021-04-28 09:21] LABS: HEMATOCRIT 30.2 % (32.4-45.2); HEMOGLOBIN 10.1 GM/dL (10.7-15.3); MCHC 33.5 g/dl (32.0-36.0); MEAN CELL VOLUME 92.4 fl (80-96); PLATELET COUNT 203 10^3/uL (134-434); RBC 3.27 M/mm3 (3.60-5.2); RDW 14.9 % (11.6-15.6); WHITE BLOOD COUNT 7.4 K/mm3 (4.0-10.0)
[2021-04-28 09:48] LABS: CALCIUM 8.5 mg/dL (8.5-10.1)
[2021-04-28 09:49] LABS: ALBUMIN 3.7 g/dl (3.4-5.0); BLOOD UREA NITROGEN 24.6 mg/dL (7-18)
[2021-04-28 09:51] LABS: BILIRUBIN,DIRECT 0.2 mg/dL (0.0-0.2)
[2021-04-28 09:52] LABS: CREATININE 1.6 mg/dL (0.55-1.3); PHOSPHOROUS 4.5 mg/dL (2.5-4.9); URIC ACID 4.9 mg/dL (2.6-7.2)
[2021-04-28 09:53] LABS: BILIRUBIN,TOTAL 0.4 mg/dL (0.2-1)
[2021-04-28 09:55] LABS: TOT PROT 6.7 g/dl (6.4-8.2)
[2021-04-28] MEDS ORDERED: ACETAMINOPHEN 325 MG TABLET (FP) PO ONE (10:00)
[2021-04-28] MEDS ORDERED: ONDANSETRON INJECTION 8 MG, DIPHENHYDRAMINE 25 MG in SODIUM CHLORIDE 100 ML IVPB ONE (10:00)
[2021-04-28 10:12] LABS: ANISOCYTOSIS 0; HELMET CELLS 0; HOWELL-JOLLY BODIES 0; MACROCYTOSIS 0; OVALOCYTE 0; PLATELET ESTIMATE NORMAL; ROULEAU 0; SICKELED CELLS 0; TARGET CELLS 0; TEAR DROP CELLS 0; TOXIC GRANULATION 0
[2021-04-28] MEDS ORDERED: RITUXIMAB ABBS IVPB ONE (10:30)
[2021-04-28] MEDS ORDERED: SODIUM CHLORIDE IVPB ONE (10:30)
[2021-04-28 15:39] VITALS: TEMP 98.1
[2021-04-28 15:50] VITALS: BP 160/53; PULSE 60
== END 2021-04-28 14:50 | disposition home or self-care (01) ==
LOC: JONCNONCHE 06:55
PROVIDERS: ATTEND Internal Medicine Hematology & Oncology
PROC: 3E03305 Introduction of Other Antineoplastic into Peripheral Vein, Percutaneous Approach (ICD-10-PCS; principal; 2021-04-28)
PROC: 3E033GC Introduction of Other Therapeutic Substance into Peripheral Vein, Percutaneous Approach (ICD-10-PCS; 2021-04-28)
PROC: 3E0337Z Introduction of Electrolytic and Water Balance Substance into Peripheral Vein, Percutaneous Approach (ICD-10-PCS; 2021-04-28)
DX: Z51.11 Encounter for antineoplastic chemotherapy (principal); C91.10 Chronic lymphocytic leukemia of B-cell type not having achieved remission; I10 Essential (primary) hypertension; D57.3 Sickle-cell trait
CPT/HCPCS: 36415; 80048; 80076; 83615; 83735; 84100; 84550; 85025; 96361; 96375; 96413; 96415; Q5115

== ENCOUNTER 2021-04-29 08:12 | Day surgery (SDC) | payer OTHER ==
[2021-04-29 10:14] LABS: HEMATOCRIT 29.9 % (32.4-45.2); HEMOGLOBIN 10.1 GM/dL (10.7-15.3); MCH 30.6 pg (25.7-33.7); MCHC 33.8 g/dl (32.0-36.0); MEAN CELL VOLUME 90.3 fl (80-96); MEAN PLT VOLUME 8.6 fl (7.5-11.1); PLATELET COUNT 189 10^3/uL (134-434); RBC 3.31 M/mm3 (3.60-5.2); RDW 15.4 % (11.6-15.6); WHITE BLOOD COUNT 7.3 K/mm3 (4.0-10.0)
[2021-04-29] MEDS ORDERED: FUROSEMIDE 20 MG TABLET (FP) PO ONE (10:30)
[2021-04-29] MEDS ORDERED: D5-1/2NS+20 MEQ KCL - 30 MEQ/1,500 ML INFUS.BAG IV ONE (10:30)
[2021-04-29] MEDS ORDERED: MAGNESIUM 1GM/D5W - 1 GM/100 ML IVPB IVPB ONE (10:30)
[2021-04-29 10:41] LABS: ALBUMIN 3.5 g/dl (3.4-5.0)
[2021-04-29 10:44] LABS: CREATININE 1.5 mg/dL (0.55-1.3)
[2021-04-29 11:19] LABS: BILIRUBIN,DIRECT 0.1 mg/dL (0.0-0.2); BILIRUBIN,TOTAL 0.4 mg/dL (0.2-1); BLOOD UREA NITROGEN 25.1 mg/dL (7-18); CALCIUM 8.3 mg/dL (8.5-10.1); TOT PROT 6.8 g/dl (6.4-8.2); URIC ACID 4.7 mg/dL (2.6-7.2)
[2021-04-29 11:23] LABS: ANISOCYTOSIS 0; MACROCYTOSIS 0; PLATELET ESTIMATE NORMAL
[2021-04-29 17:47] VITALS: BP 151/65; PULSE 57; TEMP 98.1
== END 2021-04-29 14:45 | disposition home or self-care (01) ==
LOC: JONCCHEMO 08:12
PROVIDERS: ATTEND Internal Medicine Hematology & Oncology
PROC: 3E033GC Introduction of Other Therapeutic Substance into Peripheral Vein, Percutaneous Approach (ICD-10-PCS; principal; 2021-04-29)
PROC: 3E0337Z Introduction of Electrolytic and Water Balance Substance into Peripheral Vein, Percutaneous Approach (ICD-10-PCS; 2021-04-29)
DX: Z76.89 Persons encountering health services in other specified circumstances (principal); C91.10 Chronic lymphocytic leukemia of B-cell type not having achieved remission
CPT/HCPCS: 36415; 80048; 80076; 83615; 83735; 84550; 85025; 96361; 96365

== ENCOUNTER 2021-05-24 07:23 | Day surgery (SDC) | payer OTHER ==
[2021-05-24 08:49] LABS: HEMATOCRIT 32.9 % (32.4-45.2); HEMOGLOBIN 10.9 GM/dL (10.7-15.3); MCH 30.6 pg (25.7-33.7); MCHC 33.2 g/dl (32.0-36.0); MEAN CELL VOLUME 91.9 fl (80-96); MEAN PLT VOLUME 8.8 fl (7.5-11.1); PLATELET COUNT 235 10^3/uL (134-434); RBC 3.58 M/mm3 (3.60-5.2); WHITE BLOOD COUNT 8.5 K/mm3 (4.0-10.0)
[2021-05-24] MEDS ORDERED: SODIUM CHLORIDE 250 ML IVPB ONE (09:00)
[2021-05-24 09:23] LABS: ALBUMIN 3.8 g/dl (3.4-5.0); MAGNESIUM 2.1 mg/dL (1.8-2.4)
[2021-05-24 09:25] LABS: BILIRUBIN,DIRECT 0.1 mg/dL (0.0-0.2); URIC ACID 5.6 mg/dL (2.6-7.2)
[2021-05-24 09:26] LABS: CREATININE 1.7 mg/dL (0.55-1.3)
[2021-05-24 09:27] LABS: BILIRUBIN,TOTAL 0.4 mg/dL (0.2-1); TOT PROT 7.1 g/dl (6.4-8.2)
[2021-05-24] MEDS ORDERED: ACETAMINOPHEN 325 MG TABLET (FP) PO ONE (09:30)
[2021-05-24] MEDS ORDERED: ONDANSETRON INJECTION 8 MG, DIPHENHYDRAMINE 25 MG in SODIUM CHLORIDE 100 ML IVPB ONE (09:30)
[2021-05-24 09:45] LABS: ANISOCYTOSIS 0; MACROCYTOSIS 0; PLATELET ESTIMATE NORMAL
[2021-05-24] MEDS ORDERED: SODIUM CHLORIDE IVPB ONE (10:00)
[2021-05-24] MEDS ORDERED: RITUXIMAB ABBS IVPB ONE (10:00)
[2021-05-24 11:14] LABS: URINE APPEARANCE CLEAR; URINE BILIRUBIN NEGATIVE (NEGATIVE); URINE COLOR YELLOW; URINE GLUCOSE (UA) NEGATIVE (NEGATIVE); URINE KETONE NEGATIVE (NEGATIVE); URINE LEUK ESTERASE NEGATIVE (NEGATIVE); URINE NITRITE NEGATIVE (NEGATIVE); URINE PROTEIN NEGATIVE (NEGATIVE); URINE UROBILINOGEN 0.2 mg/dL (0.2-1.0)
[2021-05-24] MEDS ORDERED: DEXAMETHASONE SOD PHOSPHATE 10 MG/1 ML VIAL IVPB ONE (11:15)
[2021-05-24 18:15] VITALS: TEMP 98.3
[2021-05-24 18:16] VITALS: BP 161/63; PULSE 59
== END 2021-05-24 17:15 | disposition home or self-care (01) ==
LOC: JONCCHEMO 07:23
PROVIDERS: ATTEND Internal Medicine Hematology & Oncology
DX: Z51.11 Encounter for antineoplastic chemotherapy (principal); C91.11 Chronic lymphocytic leukemia of B-cell type in remission
CPT/HCPCS: 36415; 80048; 80076; 81003; 83615; 83735; 84550; 85025; 87086; 96361; 96375; 96413; 96415; J1100; Q5115

== ENCOUNTER 2021-05-25 07:30 | Day surgery (SDC) | payer OTHER ==
[2021-05-25] MEDS ORDERED: POTASSIUM CHLORIDE TABS 20 MEQ TABLET.ER (FP) PO ONE (08:30)
[2021-05-25] MEDS ORDERED: D5-1/2NS+20 MEQ KCL - 20 MEQ/1,000 ML INFUS.BAG IV ONE (10:00)
[2021-05-25] MEDS ORDERED: FUROSEMIDE 40 MG/4 ML INJECTABLE VIAL IVPUSH ONE (10:00)
[2021-05-25] MEDS ORDERED: MAGNESIUM 1GM/D5W - 1 GM/100 ML IVPB IVPB ONE (10:00)
[2021-05-25] MEDS ORDERED: DEXTROSE 5%-NORMAL SALINE 1,000 ML IV ONE (13:00)
[2021-05-25 15:54] VITALS: TEMP 98.5
[2021-05-25 15:56] VITALS: BP 146/65; PULSE 59
== END 2021-05-25 15:45 | disposition home or self-care (01) ==
LOC: JONCNONCHE 07:30
PROVIDERS: ATTEND Internal Medicine Hematology & Oncology
PROC: 3E033GC Introduction of Other Therapeutic Substance into Peripheral Vein, Percutaneous Approach (ICD-10-PCS; principal; 2021-05-25)
PROC: 3E033GC Introduction of Other Therapeutic Substance into Peripheral Vein, Percutaneous Approach (ICD-10-PCS; 2021-05-25)
DX: C91.10 Chronic lymphocytic leukemia of B-cell type not having achieved remission (principal); Z76.89 Persons encountering health services in other specified circumstances
CPT/HCPCS: 96361; 96365

== ENCOUNTER 2021-06-21 07:16 | Day surgery (SDC) | payer OTHER ==
[2021-06-21] MEDS ORDERED: SODIUM CHLORIDE 250 ML IV ONE (09:00)
[2021-06-21] MEDS ORDERED: ONDANSETRON INJECTION 8 MG, DIPHENHYDRAMINE 25 MG in SODIUM CHLORIDE 100 ML IVPB ONE (10:00)
[2021-06-21] MEDS ORDERED: ACETAMINOPHEN 325 MG TABLET (FP) PO ONE (10:00)
[2021-06-21] MEDS ORDERED: RITUXIMAB ABBS IVPB ONE (10:30)
[2021-06-21] MEDS ORDERED: SODIUM CHLORIDE IVPB ONE (10:30)
[2021-06-21 10:47] LABS: HEMATOCRIT 33.2 % (32.4-45.2); MCH 30.4 pg (25.7-33.7); MCHC 33.1 g/dl (32.0-36.0); MEAN PLT VOLUME 9.9 fl (7.5-11.1); PLATELET COUNT 218 10^3/uL (134-434); RBC 3.61 M/mm3 (3.60-5.2); RDW 13.3 % (11.6-15.6)
[2021-06-21 11:07] LABS: CALCIUM 9.3 mg/dL (8.5-10.1)
[2021-06-21 11:08] LABS: ALBUMIN 3.8 g/dl (3.4-5.0); BLOOD UREA NITROGEN 34.6 mg/dL (7-18)
[2021-06-21 11:09] LABS: URIC ACID 5.6 mg/dL (2.6-7.2)
[2021-06-21 11:10] LABS: CREATININE 1.7 mg/dL (0.55-1.3)
[2021-06-21 11:11] LABS: BILIRUBIN,DIRECT 0.2 mg/dL (0.0-0.2)
[2021-06-21 11:12] LABS: TOT PROT 6.8 g/dl (6.4-8.2)
[2021-06-21 11:13] LABS: BILIRUBIN,TOTAL 0.5 mg/dL (0.2-1)
[2021-06-21 13:17] LABS: ANISOCYTOSIS 0; MACROCYTOSIS 0; PLATELET ESTIMATE NORMAL
[2021-06-21 16:21] VITALS: TEMP 97.8
[2021-06-21 16:51] VITALS: BP 130/50; PULSE 64
[2021-06-23 08:06] LABS: BETA-2-MICROGLOBULIN 3.8 mg/L (0.6-2.4)
== END 2021-06-21 16:30 | disposition home or self-care (01) ==
LOC: JONCCHEMO 07:16
PROVIDERS: ATTEND Internal Medicine Hematology & Oncology
DX: Z51.11 Encounter for antineoplastic chemotherapy (principal); C91.10 Chronic lymphocytic leukemia of B-cell type not having achieved remission
CPT/HCPCS: 36415; 80048; 80076; 82232; 82784; 83615; 83735; 84100; 84550; 85025; 96367; 96413; 96415; Q5115

== ENCOUNTER 2021-07-19 07:35 | Day surgery (SDC) | payer OTHER ==
[~2021-07-19 07:35] MED LIST changes: -POTASSIUM CHLORIDE TABS 20 MEQ TABLET.ER (FP) PO ONE; +SODIUM CHLORIDE 250 ML IV ONE
[2021-07-19] MEDS ORDERED: SODIUM CHLORIDE 250 ML IV ONE (10:00)
[2021-07-19] MEDS ORDERED: ACETAMINOPHEN 325 MG TABLET (FP) PO ONE (10:30)
[2021-07-19] MEDS ORDERED: ONDANSETRON INJECTION 8 MG, DIPHENHYDRAMINE 25 MG in SODIUM CHLORIDE 100 ML IVPB ONE (10:30)
[2021-07-19] MEDS ORDERED: SODIUM CHLORIDE IVPB ONE (11:00)
[2021-07-19] MEDS ORDERED: RITUXIMAB ABBS IVPB ONE (11:00)
[2021-07-19 11:44] LABS: MCH 29.6 pg (25.7-33.7); MCHC 33.3 g/dl (32.0-36.0); MEAN CELL VOLUME 88.8 fl (80-96); MEAN PLT VOLUME 9.3 fl (7.5-11.1); PLATELET COUNT 240 10^3/uL (134-434); RBC 3.71 M/mm3 (3.60-5.2); RDW 13.3 % (11.6-15.6); WHITE BLOOD COUNT 5.2 K/mm3 (4.0-10.0)
[2021-07-19 12:16] LABS: ALBUMIN 3.5 g/dl (3.4-5.0); BLOOD UREA NITROGEN 32.6 mg/dL (7-18); CALCIUM 9.2 mg/dL (8.5-10.1); MAGNESIUM 2.4 mg/dL (1.8-2.4)
[2021-07-19 12:18] LABS: CREATININE 1.6 mg/dL (0.55-1.3); URIC ACID 5.6 mg/dL (2.6-7.2)
[2021-07-19 12:20] LABS: BILIRUBIN,DIRECT 0.2 mg/dL (0.0-0.2)
[2021-07-19 12:21] LABS: TOT PROT 6.7 g/dl (6.4-8.2)
[2021-07-19 12:22] LABS: BILIRUBIN,TOTAL 0.5 mg/dL (0.2-1)
[2021-07-19 17:36] VITALS: TEMP 97.8
[2021-07-19 18:17] LABS: ANISOCYTOSIS 0; MACROCYTOSIS 0; OVALOCYTE 1+; PLATELET ESTIMATE NORMAL; ROULEAU 1+
[2021-07-19 18:38] VITALS: BP 125/55; PULSE 60
[2021-07-20 17:09] LABS: BETA-2-MICROGLOBULIN 4.3 mg/L (0.6-2.4)
== END 2021-07-19 18:38 | disposition home or self-care (01) ==
LOC: JONCCHEMO 07:35
PROVIDERS: ATTEND Internal Medicine Hematology & Oncology
DX: Z51.11 Encounter for antineoplastic chemotherapy (principal); C91.10 Chronic lymphocytic leukemia of B-cell type not having achieved remission
CPT/HCPCS: 36415; 80048; 80076; 82232; 82784; 83615; 83735; 84100; 84550; 85025; 96361; 96375; 96413; 96415; Q5115

== ENCOUNTER 2021-07-20 06:24 | Day surgery (SDC) | payer OTHER ==
[2021-07-20] MEDS ORDERED: FUROSEMIDE 40 MG/4 ML INJECTABLE VIAL IVPUSH ONE (10:00)
[2021-07-20] MEDS ORDERED: D5-1/2NS+20 MEQ KCL - 20 MEQ/1,000 ML INFUS.BAG IV ONE (10:00)
[2021-07-20] MEDS ORDERED: DEXTROSE 5%-NORMAL SALINE 1,000 ML IV ONE (12:30)
[2021-07-20 15:48] VITALS: PULSE 68; TEMP 97.9
[2021-07-20 15:49] VITALS: BP 106/64
== END 2021-07-20 15:00 | disposition home or self-care (01) ==
LOC: JONCCHEMO 06:24
PROVIDERS: ATTEND Internal Medicine Hematology & Oncology
PROC: 3E033GC Introduction of Other Therapeutic Substance into Peripheral Vein, Percutaneous Approach (ICD-10-PCS; principal; 2021-07-20)
PROC: 3E0337Z Introduction of Electrolytic and Water Balance Substance into Peripheral Vein, Percutaneous Approach (ICD-10-PCS; 2021-07-20)
DX: C91.10 Chronic lymphocytic leukemia of B-cell type not having achieved remission (principal); K58.2 Mixed irritable bowel syndrome; Z76.89 Persons encountering health services in other specified circumstances
CPT/HCPCS: 96360; 96361; 96374

== ENCOUNTER 2021-08-12 07:13 | Day surgery (SDC) | payer OTHER ==
[2021-08-12 09:05] LABS: BASO % 1.2 % (0-2.0); EOS % 3.4 % (0-4.5); HEMATOCRIT 33.6 % (32.4-45.2); MCH 29.9 pg (25.7-33.7); MCHC 32.9 g/dl (32.0-36.0); MEAN PLT VOLUME 9.5 fl (7.5-11.1); NEUT % 49.4 % (42.8-82.8); PLATELET COUNT 225 10^3/uL (134-434); RBC 3.69 M/mm3 (3.60-5.2); RDW 14.3 % (11.6-15.6); WHITE BLOOD COUNT 7.6 K/mm3 (4.0-10.0)
[2021-08-12 09:18] LABS: CALCIUM 8.9 mg/dL (8.5-10.1); MAGNESIUM 2.4 mg/dL (1.8-2.4)
[2021-08-12 09:19] LABS: ALBUMIN 3.5 g/dl (3.4-5.0); BLOOD UREA NITROGEN 29.1 mg/dL (7-18)
[2021-08-12 09:21] LABS: CREATININE 1.8 mg/dL (0.55-1.3); URIC ACID 5.6 mg/dL (2.6-7.2)
[2021-08-12 09:22] LABS: BILIRUBIN,DIRECT 0.1 mg/dL (0.0-0.2); PHOSPHOROUS 3.8 mg/dL (2.5-4.9)
[2021-08-12 09:23] LABS: TOT PROT 6.5 g/dl (6.4-8.2)
[2021-08-12 09:24] LABS: BILIRUBIN,TOTAL 0.4 mg/dL (0.2-1)
[2021-08-12] MEDS ORDERED: ACETAMINOPHEN 325 MG TABLET (FP) PO ONE (10:30)
[2021-08-12] MEDS ORDERED: ONDANSETRON INJECTION 8 MG, DIPHENHYDRAMINE 25 MG in SODIUM CHLORIDE 100 ML IVPB ONE (10:30)
[2021-08-12] MEDS ORDERED: RITUXIMAB ABBS IVPB ONE (11:00)
[2021-08-12] MEDS ORDERED: SODIUM CHLORIDE IVPB ONE (11:00)
[2021-08-12] MEDS ORDERED: SODIUM CHLORIDE 250 ML IV ONE (13:00)
[2021-08-12 17:23] VITALS: TEMP 98.1
[2021-08-12 17:25] VITALS: BP 104/54; PULSE 54
== END 2021-08-12 17:10 | disposition home or self-care (01) ==
LOC: JONCCHEMO 07:13
PROVIDERS: ATTEND Internal Medicine Hematology & Oncology
DX: C91.10 Chronic lymphocytic leukemia of B-cell type not having achieved remission (principal); K58.2 Mixed irritable bowel syndrome
CPT/HCPCS: 36415; 80048; 80076; 82232; 82784; 83735; 84100; 84550; 85025; 96361; 96367; 96413; 96415; Q5115

== ENCOUNTER 2021-09-20 07:36 | Day surgery (SDC) | payer OTHER ==
[~2021-09-20 07:36] MED LIST changes: +D5-1/2NS+20 MEQ KCL - 20 MEQ/1,000 ML INFUS.BAG IV ONE; +DEXTROSE 5%-NORMAL SALINE 1,000 ML IV ONE; +FUROSEMIDE 40 MG/4 ML INJECTABLE VIAL IVPUSH ONE; +MAGNESIUM 1GM/D5W - 1 GM/100 ML IVPB IVPB ONE; -SODIUM CHLORIDE 250 ML IV ONE
[2021-09-20 12:14] LABS: HEMATOCRIT 34.5 % (32.4-45.2); MCH 29.2 pg (25.7-33.7); MEAN CELL VOLUME 91.4 fl (80-96); MEAN PLT VOLUME 10.9 fl (7.5-11.1); PLATELET COUNT 213 10^3/uL (134-434); RBC 3.78 M/mm3 (3.60-5.2); RDW 14.5 % (11.6-15.6); WHITE BLOOD COUNT 6.7 K/mm3 (4.0-10.0)
[2021-09-20 12:28] LABS: PH,URINE 5.5 (5.0-8.0); URINE APPEARANCE CLEAR; URINE BILIRUBIN NEGATIVE (NEGATIVE); URINE COLOR YELLOW; URINE GLUCOSE (UA) NEGATIVE (NEGATIVE); URINE KETONE NEGATIVE (NEGATIVE); URINE LEUK ESTERASE NEGATIVE (NEGATIVE); URINE NITRITE NEGATIVE (NEGATIVE); URINE PROTEIN NEGATIVE (NEGATIVE); URINE UROBILINOGEN 0.2 mg/dL (0.2-1.0)
[2021-09-20 12:44] LABS: ALBUMIN 3.8 g/dl (3.4-5.0); BLOOD UREA NITROGEN 24.8 mg/dL (7-18); CALCIUM 9.5 mg/dL (8.5-10.1)
[2021-09-20 12:45] LABS: MAGNESIUM 2.3 mg/dL (1.8-2.4)
[2021-09-20] MEDS ORDERED: MAGNESIUM SULFATE IN WATER 2 GM/50 ML IVPB IVPB ONE (12:45)
[2021-09-20] MEDS ORDERED: D5-1/2NS+20 MEQ KCL - 10 MEQ/500 ML INFUS.BAG IV ONE (12:45)
[2021-09-20 12:47] LABS: BILIRUBIN,DIRECT 0.2 mg/dL (0.0-0.2); CREATININE 1.5 mg/dL (0.55-1.3); URIC ACID 5.8 mg/dL (2.6-7.2)
[2021-09-20 12:49] LABS: BILIRUBIN,TOTAL 0.6 mg/dL (0.2-1); TOT PROT 6.8 g/dl (6.4-8.2)
[2021-09-20 13:03] LABS: ANISOCYTOSIS 0; MACROCYTOSIS 0; PLATELET ESTIMATE NORMAL
[2021-09-20 15:55] VITALS: BP 135/48; PULSE 64; TEMP 98.2
[2021-09-22 08:07] LABS: BETA-2-MICROGLOBULIN 2.4 mg/L (0.6-2.4)
== END 2021-09-20 14:30 | disposition home or self-care (01) ==
LOC: JONCCHEMO 07:36
PROVIDERS: ATTEND Internal Medicine Hematology & Oncology
PROC: 3E033GC Introduction of Other Therapeutic Substance into Peripheral Vein, Percutaneous Approach (ICD-10-PCS; principal; 2021-09-20)
PROC: 3E033GC Introduction of Other Therapeutic Substance into Peripheral Vein, Percutaneous Approach (ICD-10-PCS; 2021-09-20)
DX: C91.10 Chronic lymphocytic leukemia of B-cell type not having achieved remission (principal); Z76.89 Persons encountering health services in other specified circumstances
CPT/HCPCS: 36415; 80048; 80076; 81003; 82232; 82784; 83615; 83735; 84550; 85025; 87086; 87517; 96361; 96365

== ENCOUNTER 2022-07-01 18:20 | Emergency (ER) | payer OTHER ==
[2022-07-01 18:30] VITALS: BMI 23.8
[2022-07-01] MEDS ORDERED: LOSARTAN POTASSIUM 50 MG TABLET PO ONE (20:55)
[2022-07-01] MEDS ORDERED: CARVEDILOL 12.5 MG TABLET (FP) PO ONE (21:22)
[2022-07-01] MEDS ORDERED: ACETAMINOPHEN 1000 MG/100 ML BAG IVPB ONE (22:09)
[2022-07-01] MEDS ORDERED: ACETAMINOPHEN INJECTION 100 ML IVPB ONE (22:36)
[2022-07-01] MEDS ORDERED: LOSARTAN POTASSIUM 50 MG TABLET ONE (22:43)
[2022-07-01] MEDS ORDERED: CARVEDILOL 12.5 MG TABLET (FP) ONE (22:43)
[2022-07-01 22:44] LABS: VENOUS BASE EXCESS 1.4 mmol/L (-2-2); VENOUS O2 SATURATION 40.1 % (70-80); VENOUS PCO2 45.7 mmHg (38-52); VENOUS PH 7.387 (7.310-7.410)
[2022-07-01 22:48] LABS: BASO % 0.6 % (0-2.0); EOS % 0.2 % (0-4.5); HEMATOCRIT 31.6 % (32.4-45.2); HEMOGLOBIN 10.5 GM/dL (10.7-15.3); LYMPH % 33.3 % (8-40); MCHC 33.4 g/dl (32.0-36.0); MEAN CELL VOLUME 86.9 fl (80-96); MONO % 12.1 % (3.8-10.2); NEUT % 53.8 % (42.8-82.8); PLATELET COUNT 197 10^3/uL (134-434); RBC 3.63 M/mm3 (3.60-5.2); RDW 13.3 % (11.6-15.6); WHITE BLOOD COUNT 8.6 K/mm3 (4.0-10.0)
[2022-07-01 23:01] LABS: INR 1.13 (0.83-1.09)
[2022-07-01 23:03] LABS: ACTIVATED PTT 34.5 SECONDS (25.2-36.5)
[2022-07-01 23:05] LABS: SODIUM 143 mmol/L (136-145)
[2022-07-01 23:06] LABS: CHLORIDE 110 mmol/L (98-107)
[2022-07-01 23:08] LABS: ALBUMIN 4.1 g/dl (3.4-5.0); ANION GAP 7 MMOL/L (8-16); BLOOD UREA NITROGEN 26.3 mg/dL (7-18); CALCIUM 9.8 mg/dL (8.5-10.1); CO2 26 mmol/L (21-32); GLUCOSE,RANDOM 100 mg/dL (74-106)
[2022-07-01 23:11] LABS: CREATININE 1.5 mg/dL (0.55-1.3); SGOT/AST 18 U/L (15-37); SGPT/ALT 25 U/L (13-61)
[2022-07-01 23:12] LABS: BILIRUBIN,TOTAL 0.5 mg/dL (0.2-1); TOT PROT 7.2 g/dl (6.4-8.2)
[2022-07-01 23:14] LABS: ALK PHOS 105 U/L (45-117)
[2022-07-01] MEDS ORDERED: SODIUM CHLORIDE 0.9% 500 ML INFUS.BAG IV ONE (23:54)
[2022-07-02 02:00] VITALS: BP 150/66; PULSE 74; RESP 17; TEMP 99.1
== END 2022-07-02 02:30 | disposition home or self-care (01) ==
LOC: JER 18:20
PROC: 3E0333Z Introduction of Anti-inflammatory into Peripheral Vein, Percutaneous Approach (ICD-10-PCS; principal; 2022-07-01)
DX: U07.1 COVID-19 (principal)
CPT/HCPCS: 0241U-QW; 36415; 71045-TC-FY; 80053; 82550; 82553; 82803; 83605; 84484; 85025; 85610; 85730; 86850; 86900; 86901; 87040; 93005; 93010; 99285-25

== ENCOUNTER 2023-09-01 08:56 | Day surgery (SDC) | payer OTHER ==
[2023-09-01] MEDS ORDERED: IRON SUCROSE INJECTION 200 MG in SODIUM CHLORIDE 100 ML IVPB ONE (10:00)
[2023-09-01 12:50] VITALS: BP 124/65; PULSE 63; RESP 20; TEMP 98.1
== END 2023-09-01 11:15 | disposition home or self-care (01) ==
LOC: JONCNONCHE 08:56 → J7W 09:03 → JONCNONCHE 11:15
PROVIDERS: ATTEND Internal Medicine Hematology & Oncology
PROC: 3E033GC Introduction of Other Therapeutic Substance into Peripheral Vein, Percutaneous Approach (ICD-10-PCS; principal; 2023-09-01)
DX: D50.9 Iron deficiency anemia, unspecified (principal)
CPT/HCPCS: 96365; J1756

== ENCOUNTER 2023-09-08 08:50 | Day surgery (SDC) | payer OTHER ==
[2023-09-08] MEDS ORDERED: IRON SUCROSE INJECTION 200 MG in SODIUM CHLORIDE 100 ML IVPB ONE (09:00)
[2023-09-08 14:27] VITALS: PULSE 58; RESP 18; TEMP 98.2
[2023-09-08 14:32] VITALS: BP 127/52
== END 2023-09-08 10:30 | disposition home or self-care (01) ==
LOC: JONCNONCHE 08:50 → J7W 09:00 → JONCNONCHE 10:30
PROVIDERS: ATTEND Internal Medicine Hematology & Oncology
PROC: 3E033GC Introduction of Other Therapeutic Substance into Peripheral Vein, Percutaneous Approach (ICD-10-PCS; principal; 2023-09-08)
DX: E61.1 Iron deficiency (principal)
CPT/HCPCS: 96365; J1756

== ENCOUNTER 2023-09-15 08:45 | Day surgery (SDC) | payer OTHER ==
[2023-09-15] MEDS ORDERED: IRON SUCROSE INJECTION 200 MG in SODIUM CHLORIDE 100 ML IVPB ONE (10:00)
[2023-09-15 15:59] VITALS: BP 127/47; PULSE 61; RESP 20; TEMP 98.3
== END 2023-09-15 11:20 | disposition home or self-care (01) ==
LOC: J7W 08:45 → JONCNONCHE 08:45
PROVIDERS: ATTEND Internal Medicine Hematology & Oncology
PROC: 3E033GC Introduction of Other Therapeutic Substance into Peripheral Vein, Percutaneous Approach (ICD-10-PCS; principal; 2023-09-15)
DX: E61.1 Iron deficiency (principal); C91.10 Chronic lymphocytic leukemia of B-cell type not having achieved remission
CPT/HCPCS: 96365; J1756

== ENCOUNTER 2023-09-22 08:50 | Day surgery (SDC) | payer OTHER ==
[2023-09-22] MEDS ORDERED: IRON SUCROSE INJECTION 200 MG in SODIUM CHLORIDE 100 ML IVPB ONE (10:00)
[2023-09-22 14:03] VITALS: RESP 18; TEMP 98.1
[2023-09-22 14:05] VITALS: BP 114/52; PULSE 56
== END 2023-09-22 10:50 | disposition home or self-care (01) ==
LOC: J7W 08:50 → JONCNONCHE 08:50
PROVIDERS: ATTEND Internal Medicine Hematology & Oncology
PROC: 3E033GC Introduction of Other Therapeutic Substance into Peripheral Vein, Percutaneous Approach (ICD-10-PCS; principal; 2023-09-22)
DX: C91.10 Chronic lymphocytic leukemia of B-cell type not having achieved remission (principal); E61.1 Iron deficiency
CPT/HCPCS: 96365; J1756

== ENCOUNTER 2023-09-29 09:45 | Day surgery (SDC) | payer OTHER ==
[2023-09-29] MEDS ORDERED: IRON SUCROSE COMPLEX 200 MG in SODIUM CHLORIDE 100 ML IVPB ONE (10:00)
[2023-09-29 10:37] VITALS: RESP 18; TEMP 98.6
[2023-09-29 10:40] VITALS: BP 126/54; PULSE 55
== END 2023-09-29 10:15 | disposition home or self-care (01) ==
LOC: JONCNONCHE 09:45 → J7W 09:47 → JONCNONCHE 10:15
PROVIDERS: ATTEND Internal Medicine Hematology & Oncology
PROC: 3E033GC Introduction of Other Therapeutic Substance into Peripheral Vein, Percutaneous Approach (ICD-10-PCS; principal; 2023-09-29)
DX: E61.1 Iron deficiency (principal); C91.10 Chronic lymphocytic leukemia of B-cell type not having achieved remission
CPT/HCPCS: 96365

== ENCOUNTER 2023-10-25 09:11 | Day surgery (SDC) | payer OTHER ==
[2023-10-25 09:35] VITALS: RESP 16
[2023-10-25] MEDS ORDERED: SODIUM BICARBONATE 8.4% - 100 MEQ in DEXTROSE 5%-WATER - 1,000 ML IV ONE (10:00)
[2023-10-25] MEDS ORDERED: SODIUM BICARBONATE IV ONE (10:00)
[2023-10-25] MEDS ORDERED: DEXTROSE 5% IV ONE (10:00)
[2023-10-25] MEDS ORDERED: WATER IV ONE (10:00)
[2023-10-25] MEDS: DEXTROSE 5% IV ONE (10:40)
[2023-10-25] MEDS: WATER IV ONE (10:40)
[2023-10-25] MEDS: SODIUM BICARBONATE IV ONE (10:40)
[2023-10-25] MEDS: FUROSEMIDE 40 MG/4 ML INJECTABLE VIAL IVPUSH ONE (12:48)
[2023-10-25 17:20] LABS: EOS % 0.6 % (0-4.5); HEMATOCRIT 28.1 % (32.4-45.2); HEMOGLOBIN 8.5 GM/dL (10.7-15.3); LYMPH % 92.3 % (8-40); MCH 27.1 pg (25.7-33.7); MCHC 30.2 g/dl (32.0-36.0); MEAN CELL VOLUME 89.9 fl (80-96); NEUT % 5.1 % (42.8-82.8); PLATELET COUNT 185 10^3/uL (134-434); RBC 3.13 M/mm3 (3.60-5.2); RDW 15.5 % (11.6-15.6)
[2023-10-25 17:22] LABS: WHITE BLOOD COUNT 372.5 K/mm3 (4.0-10.0)
[2023-10-25 17:25] VITALS: BP 143/63; PULSE 69; TEMP 98.5
[2023-10-25 17:46] LABS: POTASSIUM 3.7 mmol/L (3.5-5.1)
[2023-10-25 17:49] LABS: BLOOD UREA NITROGEN 32.8 mg/dL (7-18); CALCIUM 9.6 mg/dL (8.5-10.1)
[2023-10-25 17:50] LABS: ANISOCYTOSIS 2+; MACROCYTOSIS 0; TARGET CELLS 1+
[2023-10-25 17:52] LABS: CREATININE 1.8 mg/dL (0.55-1.3); PHOSPHOROUS 2.4 mg/dL (2.5-4.9); URIC ACID 8.6 mg/dL (2.6-7.2)
[2023-10-25 17:54] LABS: BILIRUBIN,TOTAL 0.6 mg/dL (0.2-1); TOT PROT 6.7 g/dl (6.4-8.2)
== END 2023-10-25 17:30 | disposition home or self-care (01) ==
LOC: JONCNONCHE 09:11 → J7W 09:28 → JONCNONCHE 17:30
PROVIDERS: ATTEND Internal Medicine Hematology & Oncology
PROC: 30233N1 Transfusion of Nonautologous Red Blood Cells into Peripheral Vein, Percutaneous Approach (ICD-10-PCS; principal; 2023-10-25)
PROC: 3E033GC Introduction of Other Therapeutic Substance into Peripheral Vein, Percutaneous Approach (ICD-10-PCS; 2023-10-25)
DX: C91.10 Chronic lymphocytic leukemia of B-cell type not having achieved remission (principal); E61.1 Iron deficiency
CPT/HCPCS: 36415; 36430; 80053; 83615; 84100; 84550; 85025; 86850; 86900; 86901; 86922; 96365; 96366; P9038; P9058

== ENCOUNTER 2023-10-26 09:52 | Day surgery (SDC) | payer OTHER ==
[2023-10-26 10:01] VITALS: TEMP 98.2
[2023-10-26] MEDS: FUROSEMIDE 40 MG/4 ML INJECTABLE VIAL IVPUSH ONE (11:05)
[2023-10-26] MEDS: POTASSIUM CHLORIDE TABS 20 MEQ TABLET.ER (FP) PO ONE (11:06)
[2023-10-26] MEDS: SODIUM BICARBONATE 8.4% - 100 MEQ in DEXTROSE 5%-WATER - 1,000 ML IV ONE (11:11)
[2023-10-26] MEDS: NAPH,MB-DB/K PH,MBDB POWDER PACKET PO ONE (11:56)
[2023-10-26] MEDS ORDERED: FUROSEMIDE 20 MG TABLET (FP) PO ONE (12:00)
[2023-10-26 14:58] VITALS: BP 110/50; PULSE 66; RESP 18
== END 2023-10-26 15:30 | disposition home or self-care (01) ==
LOC: JONCNONCHE 09:52 → J7W 09:52 → JONCNONCHE 15:30
PROVIDERS: ATTEND Internal Medicine Hematology & Oncology
PROC: 3E033GC Introduction of Other Therapeutic Substance into Peripheral Vein, Percutaneous Approach (ICD-10-PCS; principal; 2023-10-26)
DX: C91.10 Chronic lymphocytic leukemia of B-cell type not having achieved remission (principal); E61.1 Iron deficiency; Z76.89 Persons encountering health services in other specified circumstances
CPT/HCPCS: 96365; 96366

== ENCOUNTER 2023-11-02 11:25 | Emergency (ER) | payer OTHER ==
[2023-11-02 11:33] VITALS: BMI 21.6
[2023-11-02 13:33] LABS: INR 1.12 (0.83-1.09)
[2023-11-02 13:34] LABS: HEMATOCRIT 27.2 % (32.4-45.2); HEMOGLOBIN 7.9 GM/dL (10.7-15.3); MCH 26.3 pg (25.7-33.7); MCHC 28.9 g/dl (32.0-36.0); MEAN CELL VOLUME 90.7 fl (80-96); PLATELET COUNT 188 10^3/uL (134-434); RDW 15.3 % (11.6-15.6)
[2023-11-02 13:36] LABS: ACTIVATED PTT 31.6 SECONDS (25.2-36.5)
[2023-11-02 13:38] LABS: WHITE BLOOD COUNT 455.3 K/mm3 (4.0-10.0)
[2023-11-02 13:58] LABS: POTASSIUM 4.4 mmol/L (3.5-5.1)
[2023-11-02 14:00] LABS: CALCIUM 9.8 mg/dL (8.5-10.1)
[2023-11-02 14:01] LABS: ALBUMIN 3.7 g/dl (3.4-5.0); BLOOD UREA NITROGEN 48.9 mg/dL (7-18)
[2023-11-02 14:03] LABS: URIC ACID 5.3 mg/dL (2.6-7.2)
[2023-11-02 14:04] LABS: CREATININE 2.3 mg/dL (0.55-1.3)
[2023-11-02 14:05] LABS: BILIRUBIN,TOTAL 0.5 mg/dL (0.2-1)
[2023-11-02 14:06] LABS: TOT PROT 6.9 g/dl (6.4-8.2)
[2023-11-02 14:16] LABS: ANISOCYTOSIS 2+; MACROCYTOSIS 0; TARGET CELLS 1+; TEAR DROP CELLS 1+
[2023-11-02 17:06] VITALS: RESP 18
[2023-11-02 18:43] VITALS: BP 127/61; PULSE 70; TEMP 98.5
== END 2023-11-02 20:49 | disposition home or self-care (01) ==
LOC: JER 11:25
DX: R05.9 Cough, unspecified (principal); R09.81 Nasal congestion; R50.9 Fever, unspecified; C91.10 Chronic lymphocytic leukemia of B-cell type not having achieved remission; D64.9 Anemia, unspecified; E87.71 Transfusion associated circulatory overload
CPT/HCPCS: 36415; 36430; 80053; 84550; 85025; 85610; 85730; 86850; 86900; 86901; 86922; 99283-25; P9058

== ENCOUNTER 2023-11-06 11:58 | Day surgery (SDC) | payer OTHER ==
[2023-11-06] MEDS: DEXTROSE 5% IV ONE (12:00)
[2023-11-06] MEDS: WATER IV ONE (12:00)
[2023-11-06] MEDS: SODIUM BICARBONATE IV ONE (12:00)
[2023-11-06] MEDS: ACETAMINOPHEN 325 MG TABLET (FP) PO ONE (14:08)
[2023-11-06] MEDS: DEXAMETHASONE SODIUM PHOSPHATE IVPB ONE (14:09)
[2023-11-06] MEDS: DIPHENHYDRAMINE IVPB ONE (14:09)
[2023-11-06] MEDS: [UNRECOGNIZED DRUG - OTHER] IVPB ONE (14:09)
[2023-11-06] MEDS: DEXTROSE 5%-WATER - 500 ML IV ONE (15:40)
[2023-11-06] MEDS: DEXAMETHASONE SOD PHOSPHATE 10 MG/1 ML VIAL IVPB ONE (17:05)
[2023-11-06 19:53] VITALS: RESP 20; TEMP 97.8
[2023-11-06 19:57] VITALS: BP 131/59; PULSE 80
== END 2023-11-06 20:01 | disposition home or self-care (01) ==
LOC: JONCCHEMO 11:58 → J7W 11:59 → JONCCHEMO 20:01
PROVIDERS: ATTEND Internal Medicine Hematology & Oncology
DX: Z51.11 Encounter for antineoplastic chemotherapy (principal); C91.10 Chronic lymphocytic leukemia of B-cell type not having achieved remission
CPT/HCPCS: 96367; 96375; 96413; 96415; J1100; Q5115

== ENCOUNTER 2023-11-14 09:13 | Inpatient (IN) | payer OTHER ==
[2023-11-14 10:55] LABS: URINE APPEARANCE CLEAR; URINE BILIRUBIN NEGATIVE (NEGATIVE); URINE COLOR YELLOW; URINE GLUCOSE (UA) NEGATIVE (NEGATIVE); URINE KETONE NEGATIVE (NEGATIVE); URINE LEUK ESTERASE NEGATIVE (NEGATIVE); URINE NITRITE NEGATIVE (NEGATIVE); URINE PROTEIN NEGATIVE (NEGATIVE); URINE UROBILINOGEN 0.2 mg/dL (0.2-1.0)
[2023-11-14 11:01] LABS: INR 1.13 (0.83-1.09); PROTHROMBIN TIME (PATIENT) 13.1 SEC (9.7-13.0)
[2023-11-14 11:02] LABS: HEMATOCRIT 25.6 % (32.4-45.2); MCH 27.8 pg (25.7-33.7); MEAN CELL VOLUME 89.5 fl (80-96); MEAN PLT VOLUME 9.7 fl (7.5-11.1); PLATELET COUNT 126 10^3/uL (134-434); RBC 2.86 M/mm3 (3.60-5.2); RDW 15.6 % (11.6-15.6); RETICULOCYTES 1.37 % (0.5-1.5)
[2023-11-14 11:03] LABS: ACTIVATED PTT 28.6 SECONDS (25.2-36.5)
[2023-11-14 11:14] LABS: WHITE BLOOD COUNT 276.8 K/mm3 (4.0-10.0)
[2023-11-14 11:25] LABS: CHLORIDE 99 mmol/L (98-107); SODIUM 129 mmol/L (136-145)
[2023-11-14 11:27] LABS: MAGNESIUM 2.5 mg/dL (1.8-2.4)
[2023-11-14 11:28] LABS: CALCIUM 10.2 mg/dL (8.5-10.1)
[2023-11-14 11:29] LABS: BILIRUBIN,DIRECT 0.1 mg/dL (0.0-0.2); BLOOD UREA NITROGEN 72.9 mg/dL (7-18); CO2 19 mmol/L (21-32); GLUCOSE,RANDOM 113 mg/dL (74-106)
[2023-11-14 11:30] LABS: PHOSPHOROUS 6.5 mg/dL (2.5-4.9)
[2023-11-14 11:32] LABS: CREATININE 2.9 mg/dL (0.55-1.3); SGOT/AST 147 U/L (15-37); URIC ACID 6.8 mg/dL (2.6-7.2)
[2023-11-14 11:34] LABS: BILIRUBIN,TOTAL 0.9 mg/dL (0.2-1); TOT PROT 6.9 g/dl (6.4-8.2)
[2023-11-14 11:35] LABS: ALK PHOS 153 U/L (45-117)
[2023-11-14 11:36] LABS: ALBUMIN 2.7 g/dl (3.4-5.0); ANION GAP 10 mmol/L (4-13); POTASSIUM 7.3 mmol/L (3.5-5.1); SGPT/ALT 79 U/L (13-61)
[2023-11-14 12:22] LABS: ANISOCYTOSIS 0; MACROCYTOSIS 0
[2023-11-14 12:44] LABS: POTASSIUM 4.5 mmol/L (3.5-5.1)
[2023-11-14 12:48] LABS: ALBUMIN 2.7 g/dl (3.4-5.0); CALCIUM 10.1 mg/dL (8.5-10.1)
[2023-11-14 12:52] LABS: CREATININE 2.7 mg/dL (0.55-1.3)
[2023-11-14 12:53] LABS: BILIRUBIN,TOTAL 0.8 mg/dL (0.2-1); TOT PROT 5.8 g/dl (6.4-8.2)
[2023-11-14] MEDS: LACTATED RINGERS SOLUTION 1,000 ML/1,000 ML INFUS.BAG IV SCH (16:55)
[2023-11-14] MEDS: LIDOCAINE 5% TOPICAL PATCH TP SCH (19:14)
[2023-11-14] MEDS: SODIUM CHLORIDE 250 ML IV STA (20:41)
[2023-11-14] MEDS ORDERED: ALPRAZolam 0.25 MG TABLET PO PRN (22:00)
[2023-11-14] MEDS: amLODIPine BESYLATE 10 MG TABLET (FP) PO SCH (22:02)
[2023-11-14] MEDS: SODIUM CHLORIDE 1,000 ML IV SCH (22:02)
[2023-11-14] MEDS: LIDOCAINE PATCH REMOVAL MC SCH (22:24)
[2023-11-14] MEDS: ACETAMINOPHEN 325 MG TABLET (FP) PO ONE (22:32)
[2023-11-14 23:59] LABS: PH,URINE 5.5 (5.0-8.0); URINE APPEARANCE CLEAR; URINE BILIRUBIN NEGATIVE (NEGATIVE); URINE COLOR YELLOW; URINE GLUCOSE (UA) NEGATIVE (NEGATIVE); URINE KETONE NEGATIVE (NEGATIVE); URINE LEUK ESTERASE NEGATIVE (NEGATIVE); URINE NITRITE NEGATIVE (NEGATIVE); URINE PROTEIN NEGATIVE (NEGATIVE); URINE UROBILINOGEN 0.2 mg/dL (0.2-1.0)
[2023-11-15 00:26] LABS: POTASSIUM 4.2 mmol/L (3.5-5.1)
[2023-11-15 00:28] LABS: BLOOD UREA NITROGEN 69.1 mg/dL (7-18)
[2023-11-15 00:31] LABS: CREATININE 2.1 mg/dL (0.55-1.3); URIC ACID 7.1 mg/dL (2.6-7.2)
[2023-11-15 00:32] LABS: PHOSPHOROUS 5.6 mg/dL (2.5-4.9)
[2023-11-15 03:04] VITALS: BMI 21.7
[2023-11-15] MEDS ORDERED: LEVOTHYROXINE NA 112 MCG TABLET (FP) PO SCH (07:00)
[2023-11-15] MEDS ORDERED: ALPRAZolam 0.25 MG TABLET PO PRN (08:03)
[2023-11-15 08:26] LABS: HEMATOCRIT 23.8 % (32.4-45.2); HEMOGLOBIN 7.4 GM/dL (10.7-15.3); MCH 28.1 pg (25.7-33.7); MCHC 31.1 g/dl (32.0-36.0); MEAN CELL VOLUME 90.4 fl (80-96); MEAN PLT VOLUME 9.7 fl (7.5-11.1); PLATELET COUNT 135 10^3/uL (134-434); RBC 2.63 M/mm3 (3.60-5.2); RDW 15.5 % (11.6-15.6)
[2023-11-15 08:49] LABS: POTASSIUM 3.8 mmol/L (3.5-5.1)
[2023-11-15 08:50] LABS: WHITE BLOOD COUNT 225.3 K/mm3 (4.0-10.0)
[2023-11-15 08:54] LABS: CALCIUM 9.9 mg/dL (8.5-10.1); MAGNESIUM 2.3 mg/dL (1.8-2.4)
[2023-11-15 08:55] LABS: ALBUMIN 2.5 g/dl (3.4-5.0); BLOOD UREA NITROGEN 65.8 mg/dL (7-18)
[2023-11-15 08:56] LABS: URIC ACID 7.5 mg/dL (2.6-7.2)
[2023-11-15 08:57] LABS: CREATININE 1.9 mg/dL (0.55-1.3)
[2023-11-15 08:58] LABS: PHOSPHOROUS 5.7 mg/dL (2.5-4.9); TOT PROT 5.6 g/dl (6.4-8.2)
[2023-11-15 09:00] LABS: BILIRUBIN,TOTAL 0.7 mg/dL (0.2-1)
[2023-11-15] MEDS: LIDOCAINE 4% PATCH TP SCH (09:27)
[2023-11-15] MEDS: amLODIPine BESYLATE 10 MG TABLET (FP) PO SCH (09:27)
[2023-11-15] MEDS: SODIUM CHLORIDE 1,000 ML IV SCH (11:30)
[2023-11-15] MEDS ORDERED: LOPERAMIDE HCL 2 MG CAPSULE PO PRN (14:06)
[2023-11-15] MEDS ORDERED: DICYCLOMINE HCL 10 MG CAPSULE PO PRN (14:06)
[2023-11-15 15:52] LABS: HEMATOCRIT 21.7 % (32.4-45.2); MCHC 31.1 g/dl (32.0-36.0); MEAN CELL VOLUME 90.1 fl (80-96); MEAN PLT VOLUME 9.3 fl (7.5-11.1); PLATELET COUNT 138 10^3/uL (134-434); RBC 2.41 M/mm3 (3.60-5.2); RDW 15.6 % (11.6-15.6)
[2023-11-15 15:59] LABS: HEMOGLOBIN 6.8 GM/dL (10.7-15.3); WHITE BLOOD COUNT 221.6 K/mm3 (4.0-10.0)
[2023-11-15 16:49] LABS: POTASSIUM 3.9 mmol/L (3.5-5.1)
[2023-11-15 16:51] LABS: CALCIUM 10.1 mg/dL (8.5-10.1)
[2023-11-15 16:52] LABS: ALBUMIN 2.4 g/dl (3.4-5.0); BLOOD UREA NITROGEN 58.7 mg/dL (7-18)
[2023-11-15 16:54] LABS: URIC ACID 7.7 mg/dL (2.6-7.2)
[2023-11-15 16:55] LABS: CREATININE 1.7 mg/dL (0.55-1.3); PHOSPHOROUS 4.6 mg/dL (2.5-4.9)
[2023-11-15 16:56] LABS: BILIRUBIN,TOTAL 0.5 mg/dL (0.2-1); TOT PROT 5.2 g/dl (6.4-8.2)
[2023-11-15] MEDS: SULFAMETHOXAZOLE/TRIMETHOPRIM 400MG/80MG S.S. TABLET PO SCH (21:38)
[2023-11-15] MEDS: CARVEDILOL 12.5 MG TABLET (FP) PO SCH (21:39)
[2023-11-15] MEDS: LIDOCAINE PATCH REMOVAL MC SCH (21:43)
[2023-11-15] MEDS: ACETAMINOPHEN 325 MG TABLET (FP) PO ONE (21:51)
[2023-11-16 07:42] LABS: HEMATOCRIT 25.7 % (32.4-45.2); HEMOGLOBIN 8.3 GM/dL (10.7-15.3); MCH 28.8 pg (25.7-33.7); MCHC 32.1 g/dl (32.0-36.0); MEAN CELL VOLUME 89.8 fl (80-96); MEAN PLT VOLUME 9.6 fl (7.5-11.1); PLATELET COUNT 151 10^3/uL (134-434); RBC 2.87 M/mm3 (3.60-5.2); RDW 14.8 % (11.6-15.6)
[2023-11-16 08:19] LABS: WHITE BLOOD COUNT 208.2 K/mm3 (4.0-10.0)
[2023-11-16 08:21] LABS: POTASSIUM 4.2 mmol/L (3.5-5.1)
[2023-11-16 08:25] LABS: CALCIUM 10.5 mg/dL (8.5-10.1)
[2023-11-16 08:26] LABS: BLOOD UREA NITROGEN 51.2 mg/dL (7-18)
[2023-11-16 08:27] LABS: ALBUMIN 2.3 g/dl (3.4-5.0); MAGNESIUM 1.8 mg/dL (1.8-2.4)
[2023-11-16 08:28] LABS: CREATININE 1.6 mg/dL (0.55-1.3); URIC ACID 7.7 mg/dL (2.6-7.2)
[2023-11-16 08:29] LABS: PHOSPHOROUS 4.4 mg/dL (2.5-4.9)
[2023-11-16 08:30] LABS: TOT PROT 5.2 g/dl (6.4-8.2)
[2023-11-16 08:31] LABS: BILIRUBIN,TOTAL 0.7 mg/dL (0.2-1)
[2023-11-16] MEDS ORDERED: ACETAMINOPHEN 325 MG TABLET (FP) PO PRN (09:43)
[2023-11-16] MEDS: LOSARTAN POTASSIUM 50 MG TABLET PO SCH (10:01)
[2023-11-16] MEDS: ATORVASTATIN CA 10 MG TABLET (FP) PO SCH (10:01)
[2023-11-16] MEDS: ACETAMINOPHEN 325 MG TABLET (FP) PO ONE (10:02)
[2023-11-16] MEDS: LEVOTHYROXINE NA 112 MCG TABLET (FP) PO SCH (11:01)
[2023-11-16] MEDS: SODIUM CHLORIDE 1,000 ML IV SCH (14:08)
[2023-11-16 15:37] LABS: HEMATOCRIT 26.4 % (32.4-45.2); HEMOGLOBIN 8.3 GM/dL (10.7-15.3); MCH 28.7 pg (25.7-33.7); MCHC 31.5 g/dl (32.0-36.0); MEAN CELL VOLUME 91.1 fl (80-96); MEAN PLT VOLUME 9.5 fl (7.5-11.1); PLATELET COUNT 177 10^3/uL (134-434); RDW 15.4 % (11.6-15.6)
[2023-11-16 15:49] LABS: WHITE BLOOD COUNT 221.4 K/mm3 (4.0-10.0)
[2023-11-16 16:06] LABS: POTASSIUM 3.9 mmol/L (3.5-5.1)
[2023-11-16 16:08] LABS: BLOOD UREA NITROGEN 44.9 mg/dL (7-18)
[2023-11-16 16:09] LABS: ALBUMIN 2.6 g/dl (3.4-5.0)
[2023-11-16 16:10] LABS: MAGNESIUM 1.7 mg/dL (1.8-2.4)
[2023-11-16 16:11] LABS: CREATININE 1.7 mg/dL (0.55-1.3); URIC ACID 7.1 mg/dL (2.6-7.2)
[2023-11-16 16:13] LABS: BILIRUBIN,TOTAL 0.6 mg/dL (0.2-1); TOT PROT 5.6 g/dl (6.4-8.2)
[2023-11-17 07:06] LABS: HEMATOCRIT 25.2 % (32.4-45.2); MCH 28.7 pg (25.7-33.7); MCHC 31.6 g/dl (32.0-36.0); MEAN CELL VOLUME 90.7 fl (80-96); MEAN PLT VOLUME 9.1 fl (7.5-11.1); PLATELET COUNT 188 10^3/uL (134-434); RBC 2.78 M/mm3 (3.60-5.2); RDW 15.1 % (11.6-15.6)
[2023-11-17 07:13] LABS: WHITE BLOOD COUNT 221.2 K/mm3 (4.0-10.0)
[2023-11-17 07:15] LABS: POTASSIUM 4.3 mmol/L (3.5-5.1)
[2023-11-17 07:19] LABS: ALBUMIN 2.3 g/dl (3.4-5.0); BLOOD UREA NITROGEN 39.5 mg/dL (7-18); CALCIUM 9.6 mg/dL (8.5-10.1); MAGNESIUM 1.5 mg/dL (1.8-2.4)
[2023-11-17 07:21] LABS: URIC ACID 6.9 mg/dL (2.6-7.2)
[2023-11-17 07:22] LABS: CREATININE 1.4 mg/dL (0.55-1.3); PHOSPHOROUS 3.6 mg/dL (2.5-4.9)
[2023-11-17 07:23] LABS: BILIRUBIN,TOTAL 0.6 mg/dL (0.2-1); TOT PROT 5.1 g/dl (6.4-8.2)
[2023-11-17] MEDS ORDERED: MAGNESIUM SULF 50% (8.12 MEQ/2 ML-1 GM VIAL) IVPB ONE (07:59)
[2023-11-17] MEDS: MAGNESIUM 2GM/50ML STERILE WATER IVPB IVPB ONE (10:56)
[2023-11-17] MEDS: valACYclovir HCL 500 MG TABLET (FP) PO SCH (10:56)
[2023-11-17 13:32] VITALS: BP 131/57; PULSE 77; RESP 16; TEMP 98.2
== END 2023-11-17 13:33 | disposition home or self-care (01) | DRG 683 ==
LOC: JER 09:13 → INTOOBSV 13:14 → JERBED 13:14 → J8W 19:57 → J4W 11-15 04:59 → OBSVTOIN 11-15 09:30
PROVIDERS: ADMIT Internal Medicine; ATTEND Internal Medicine
PROC: 30233N1 Transfusion of Nonautologous Red Blood Cells into Peripheral Vein, Percutaneous Approach (ICD-10-PCS; principal; 2023-11-15)
DX: E88.3 Tumor lysis syndrome (principal); C91.10 Chronic lymphocytic leukemia of B-cell type not having achieved remission; N17.9 Acute kidney failure, unspecified; E78.5 Hyperlipidemia, unspecified; I12.9 Hypertensive chronic kidney disease with stage 1 through stage 4 chronic kidney disease, or unspecified chronic kidney disease; E03.9 Hypothyroidism, unspecified; N18.9 Chronic kidney disease, unspecified
CPT/HCPCS: 36415; 36430; 71045-TC-FY; 76775-TC; 80048; 80053; 81003; 82248; 82436; 82570; 82955; 83010; 83615; 83735; 84100; 84133; 84300; 84484; 84550; 85025; 85027; 85045; 85610; 85730; 86341; 86850; 86900; 86901; 86922; 93005; 93010; 97116-GP; 97161-GP; 99285-25; G0378; P9058

== ENCOUNTER 2023-11-20 10:57 | Day surgery (SDC) | payer OTHER ==
[~2023-11-20 10:57] MED LIST changes: +ACETAMINOPHEN 325 MG TABLET (FP) PO ONE; -D5-1/2NS+20 MEQ KCL - 20 MEQ/1,000 ML INFUS.BAG IV ONE; +DEXAMETHASONE SODIUM PHOSPHATE 10 MG, DIPHENHYDRAMINE 25 MG in DEXTROSE 5%-WATER - 100 ML IVPB ONE; +DEXAMETHASONE SODIUM PHOSPHATE 10 MG, DIPHENHYDRAMINE 25 MG in SODIUM CHLORIDE 100 ML IVPB ONE; +DEXTROSE 5% IV ONE; -DEXTROSE 5%-NORMAL SALINE 1,000 ML IV ONE; +DEXTROSE 5%-WATER - 500 ML IV ONE; -FUROSEMIDE 40 MG/4 ML INJECTABLE VIAL IVPUSH ONE; -MAGNESIUM 1GM/D5W - 1 GM/100 ML IVPB IVPB ONE; +RITUXIMAB ABBS IVPB ONE; +SODIUM BICARBONATE IV ONE; +SODIUM CHLORIDE IVPB ONE; +WATER IV ONE
[2023-11-20 11:43] LABS: HEMATOCRIT 25.9 % (32.4-45.2); HEMOGLOBIN 7.9 GM/dL (10.7-15.3); MCH 28.2 pg (25.7-33.7); MCHC 30.6 g/dl (32.0-36.0); MEAN CELL VOLUME 92.1 fl (80-96); MEAN PLT VOLUME 9.2 fl (7.5-11.1); PLATELET COUNT 321 10^3/uL (134-434); RBC 2.81 M/mm3 (3.60-5.2); RDW 15.5 % (11.6-15.6)
[2023-11-20 11:51] LABS: WHITE BLOOD COUNT 239.3 K/mm3 (4.0-10.0)
[2023-11-20] MEDS: DEXTROSE 5%-WATER - 500 ML IV ONE (11:57)
[2023-11-20 12:11] LABS: MAGNESIUM 1.4 mg/dL (1.8-2.4)
[2023-11-20 12:12] LABS: BLOOD UREA NITROGEN 24.8 mg/dL (7-18); CALCIUM 9.1 mg/dL (8.5-10.1)
[2023-11-20 12:13] LABS: URIC ACID 5.1 mg/dL (2.6-7.2)
[2023-11-20 12:14] LABS: CREATININE 1.4 mg/dL (0.55-1.3)
[2023-11-20 12:16] LABS: PHOSPHOROUS 3.2 mg/dL (2.5-4.9)
[2023-11-20 12:17] LABS: BILIRUBIN,TOTAL 0.5 mg/dL (0.2-1)
[2023-11-20 12:18] LABS: TOT PROT 5.7 g/dl (6.4-8.2)
[2023-11-20 12:25] LABS: ALBUMIN 2.8 g/dl (3.4-5.0)
[2023-11-20 12:51] LABS: ANISOCYTOSIS 0; HELMET CELLS 0; HOWELL-JOLLY BODIES 0; MACROCYTOSIS 0; OVALOCYTE 0; ROULEAU 0; SICKELED CELLS 0; TARGET CELLS 0; TEAR DROP CELLS 0; TOXIC GRANULATION 0
[2023-11-20] MEDS: WATER IV ONE (13:01)
[2023-11-20] MEDS: DEXTROSE 5% IV ONE (13:01)
[2023-11-20] MEDS: SODIUM BICARBONATE IV ONE (13:01)
[2023-11-20] MEDS: MAGNESIUM SULF 50% (8.12 MEQ/2 ML-1 GM VIAL) IVPB ONE (14:00)
[2023-11-20 14:22] VITALS: RESP 18; TEMP 98.7
[2023-11-20 16:05] VITALS: BP 132/63; PULSE 86
== END 2023-11-20 16:12 | disposition home or self-care (01) ==
LOC: JONCCHEMO 10:57 → J7W 10:57 → JONCCHEMO 16:12
PROVIDERS: ATTEND Internal Medicine Hematology & Oncology
PROC: 3E033GC Introduction of Other Therapeutic Substance into Peripheral Vein, Percutaneous Approach (ICD-10-PCS; principal; 2023-11-20)
DX: C91.10 Chronic lymphocytic leukemia of B-cell type not having achieved remission (principal); Z76.89 Persons encountering health services in other specified circumstances
CPT/HCPCS: 36415; 80053; 83615; 83735; 84100; 84550; 85025; 86850; 86900; 86901; 96365; 96366; 96368

== ENCOUNTER 2023-11-21 08:15 | Day surgery (SDC) | payer OTHER ==
[2023-11-21 08:44] LABS: HEMATOCRIT 25.2 % (32.4-45.2); HEMOGLOBIN 7.8 GM/dL (10.7-15.3); MCH 28.4 pg (25.7-33.7); MCHC 31.1 g/dl (32.0-36.0); MEAN CELL VOLUME 91.3 fl (80-96); PLATELET COUNT 348 10^3/uL (134-434); RBC 2.76 M/mm3 (3.60-5.2); RDW 15.3 % (11.6-15.6)
[2023-11-21 08:49] LABS: WHITE BLOOD COUNT 261.7 K/mm3 (4.0-10.0)
[2023-11-21 09:42] VITALS: BP 117/53; PULSE 64; RESP 18; TEMP 98
[2023-11-21] MEDS: FUROSEMIDE 40 MG/4 ML INJECTABLE VIAL IVPUSH ONE ×2 (12:46→12:47)
[2023-11-21 17:37] LABS: HEMATOCRIT 33.4 % (32.4-45.2); HEMOGLOBIN 10.3 GM/dL (10.7-15.3); MCH 27.7 pg (25.7-33.7); MCHC 30.9 g/dl (32.0-36.0); MEAN CELL VOLUME 89.5 fl (80-96); MEAN PLT VOLUME 8.7 fl (7.5-11.1); PLATELET COUNT 347 10^3/uL (134-434); RBC 3.74 M/mm3 (3.60-5.2); RDW 16.5 % (11.6-15.6)
[2023-11-21 17:44] LABS: WHITE BLOOD COUNT 276.3 K/mm3 (4.0-10.0)
[2023-11-21 18:44] LABS: ANISOCYTOSIS 1+; MACROCYTOSIS 0
== END 2023-11-21 17:56 | disposition home or self-care (01) ==
LOC: JONCBLOOD 08:15 → J7W 08:28 → JONCBLOOD 08:28 → J7W 09:58 → JONCBLOOD 17:56
PROVIDERS: ATTEND Internal Medicine Hematology & Oncology
PROC: 30233N1 Transfusion of Nonautologous Red Blood Cells into Peripheral Vein, Percutaneous Approach (ICD-10-PCS; principal; 2023-11-21)
DX: C91.10 Chronic lymphocytic leukemia of B-cell type not having achieved remission (principal)
CPT/HCPCS: 36415; 36430; 85025; 86850; 86900; 86901; 86922; P9038; P9058